=== PATIENT | female | born 1965 | race Caucasian/White ===

== ENCOUNTER 2024-04-19 11:39 | Emergency (ER) | payer OTHER, SELFPAY ==
[2024-04-19 11:55] VITALS: BP 129/77; PULSE 71; RESP 20; TEMP 37; O2SAT 98; BMI 21.9
--- NOTE | 2024-04-19 12:24 | CRLHL7_ITS ---
For Patients: As a result of the Century Cures Act, medical imaging exams and procedure reports are released immediately into your electronic medical record. You may view this report before your referring provider. If you have questions, please contact your health care provider. INDICATION: UPPER EPIG PAIN RADIATES TO CHEST AND DOWN THE MIDDLE OF HER ABD TECHNIQUE: CT abdomen and pelvis acquired with 69 cc Isovue 370 IV contrast. COMPARISON: None. FINDINGS: Lower chest: Dependent right lower lobe predominant scattered pulmonary peripheral micro nodules. Additional scattered indeterminate pulmonary nodules in the lung bases measuring up to 7 millimeters. ABDOMEN: Liver: Normal enhancement. Hypodensity in segment 5 measuring 11 millimeters measuring not quite simple attenuation. Incompletely characterized on this exam. Gallbladder and biliary: Normal gallbladder without radiopaque stone. Normal caliber bile ducts. Spleen: Normal size and enhancement. Pancreas: Normal enhancement without peripancreatic inflammatory changes or ductal dilatation. Adrenal glands: Normal adrenal glands. Kidneys and ureters: Normal enhancement. No radio-opaque calculi. No hydroureteronephrosis. GI tract: The stomach is relatively decompressed. Normal caliber small and large bowel loops. Appendix is not definitively visualized. Colonic diverticula without diverticulitis Vascular structures: Normal caliber aorta with atherosclerotic calcifications. Lymph nodes: No lymphadenopathy in the abdomen or pelvis by size criteria. Peritoneum: No free air, free fluid, or focal drainable fluid collection. PELVIS: Genitourinary system: Urinary bladder is relatively decompressed. Hysterectomy. SKELETAL STRUCTURES AND SOFT TISSUES: Bilateral breast implants. IMPRESSION: 1. No discrete acute abdominal or pelvic process. No obstruction. No hydroureteronephrosis. 2. No imaging findings to explain the reported clinical symptoms. 3. Dependent right lower lobe predominant scattered pulmonary peripheral micro nodules. Additional scattered indeterminate pulmonary nodules in the lung bases measuring up to 7 millimeters. If not previously assessed, recommend unenhanced chest CT for further evaluation. 4. Hypodensity in segment 5 measuring 11 millimeters measuring not quite simple attenuation. Incompletely characterized on this exam. Recommend nonemergent dedicated liver protocol MRI for further characterization if not previously worked up. Please note that all CT scans at this facility use dose modulation, iterative reconstruction, and/or weight-based dosing when appropriate to reduce radiation dose to as low as reasonably achievable. Dictated by Tommy Dhillon MD @ 04/19/2024 1:53:09 PM (Electronically Signed)
--- OUTSIDE RECORDS SUMMARY | 2024-04-19 12:37 | XMS_ITS | Encounter Summary ---
Author Organization [place] Address [address] [place] [address]. [place] [address] Care Team Providers Care Bus Assistant Name Role Phone Poonam Manzo NP Primary Care Provider + Poonam Manzo INPATIENT SERVICES RN Unavailable [phone] Susana Mensah MD Unavailable Jessica Coronado PA-C Unavailable [phone] Poonam Manzo INPATIENT SERVICES RN Unavailable [phone] Encounter Details Date Type Department Care Team (Late st Contact Info) Description 04/09/2023 External Order Results [facility] [address] [place] [address] Outside, Provider Family history of breast cancer; Family history of prostate cancer; History of adenomatous polyp of colon Social History Tobacco Use Types Packs/Day Years Used Date Smoking Tobacco: Never Smokeless Tobacco: Never Comments:no ecig Alcohol Use Standard Drinks/Week Comments Yes 0 (1 standard drink = 0.6 oz pur e alcohol) 1 per month AUDIT-C Answer Date Recorded Q1: How often do you have a drink containing alc ohol? Monthly or less 10/23/2018 Average Number of Drinks Not on file 019 Frequency of Binge Drinking Not on file 09/26 PHQ-2 Answer Date Recorded PHQ-2 Score 0 04/30/2022 Adolescent Education Answer Date Record ed Getting School Help Needed Not on file 12/09 Comments No Sex and Gender Information Value Date Recorded Sex Assigned at Female 01/12/2022 10:10 AM STOPPER MAKER HELPER Legal Sex Female 4:04 AM STOPPER MAKER HELPER Gender Identity Female 01/12/2022 10:10 AM STOPPER MAKER HELPER Sexual Orientation Not on file documented as of this encounter Plan of Treatment Not on file documented as of this encounter Procedures Procedure Name Priority Date/Time Associated Diagnosis Comments LABORATORY MISCELLANEOUS ORDER Routine 04/09/2023 12:00 AM STOPPER MAKER HELPER Family history of breast cancer Family history of prostate cancer History of adenomatous polyp of colon documented in this encounter Results * Other Laboratory; [facility] Genetics; Custom Panel, genetic testing (Laboratory Miscellaneous Order) (04/09/2023 12:00 AM STOPPER MAKER HELPER) Saliva 04/09/2023 Lisette Stock [facility] - BLOOD ORDERABLES Final Re sult BREEZE PFT documented in this encounter Visit Diagnoses Diagnosis Family history of breast cancer Family history of malignant neoplasm of breast Family history of prostate cancer Family history of malignant neoplasm of prostate History of adenomatous polyp of colon Personal history of colonic polyps documented in this encounter Additional Health Concerns Assessment Noted Time PHQ-9 Depression Total Score: 0 04/21/19 19 7:38 AM STOPPER MAKER HELPER documented as of this encounter Care Teams Bus Assistant Relationship Specialty Start Date End Date Poonam Manzo NP [address] [place] [place] [address] PCP - General Nurse Practitioner 04/14/18 Poonam Manzo NP [address] [facility] [place], [place] [address] Assigned PCP 10/09/17 08/16/23 Susana Mensah MD [address] [place] [address] Assigned Surgical Provider 05/04/22 12/16/23 Jessica Coronado PA-C [address] [place] [address] Assigned PCP 08/17/23 03/17/24 Poonam Manzo NP [address] [place] [address] Assigned PCP 03/18/24 documented as of this encounter
--- OUTSIDE RECORDS SUMMARY | 2024-04-19 12:37 | XMS_ITS | Encounter Summary ---
Author Organization [place] Address [address] [place] [address]. [place] [address] Care Team Providers Care Structural Engineering Drafting Officer Name Role Phone Poonam Manzo NP Primary Care Provider + Poonam Manzo UNDERWATER HUNTER Unavailable [phone] Susana Mensah MD Unavailable Jessica Coronado-Nolan Unavailable [phone] Poonam Manzo UNDERWATER HUNTER Unavailable [phone] Encounter Details Date Type Department Care Team (Late st Contact Info) Description 03/24/2023 MyC Medical Advice [facility] [address] [place] [address] Lisette Stock, [address] [address] Social History Tobacco Use Types Packs/Day Years [...] Sex Assigned at Female 01/12/2022 10:10 AM NURSING DIRECTOR Legal Sex Female 4:04 AM NURSING DIRECTOR Gender Identity Female 01/12/2022 10:10 AM NURSING DIRECTOR Sexual Orientation Not on file documented as of this encounter Plan of Treatment Not on file documented as of this encounter Visit Diagnoses Not on filedocumented in this encounter Additional Health Concerns Assessment Noted Time PHQ-9 Depression Total Score: 0 04/21/19 7:38 AM NURSING DIRECTOR documented as of this encounter Care Teams Structural Engineering Drafting Officer Relationship Specialty Start Date End Date Poonam Manzo, UNDERWATER HUNTER [address] [place] [address] PCP - General Nurse Practitioner 04/14/18 Poonam Manzo, UNDERWATER HUNTER [address] [place] [address] Assigned PCP 10/09/17 08/16/23 Susana Mensah MD [address] [place] [address] Assigned Surgical Provider 05/04/22 12/16/23 Jessica Coronado PA-C [address] [facility] [place] [address] Assigned PCP 08/17/23 03/17/24 Poonam Manzo, UNDERWATER HUNTER [address] [place] [id number] Assigned PCP 03/18/24 documented as of this encounter
--- OUTSIDE RECORDS SUMMARY | 2024-04-19 12:37 | XMS_ITS | Encounter Summary ---
Author Organization [place] Address [address] [place] [address]. [place] [address] Care Team Providers Care Account Engineer Name Role Phone Poonam Manzo NP Primary Care Provider + Poonam Manzo FINISHED CIGAR MAKER Unavailable [phone] Susana Mensah MD Unavailable Jessica Coronado-Nolan Unavailable [phone] Poonam Manzo FINISHED CIGAR MAKER Unavailable [phone] Encounter Details Date Type Department Care Team (Late st Contact Info) Description 05/17/2023 MyC Medical Advice [facility] [address] [place] [address] Lisette Stock, [address] [address] Social History Tobacco Use Types [...] Sex Assigned at Female 01/12/2022 10:10 AM ADVERTISING VICE PRESIDENT Legal Sex Female 4:04 AM ADVERTISING VICE PRESIDENT Gender Identity Female 01/12/2022 10:10 AM ADVERTISING VICE PRESIDENT Sexual Orientation Not on file documented as of this encounter Plan of Treatment Not on file documented as of this encounter Visit Diagnoses Not on filedocumented in this encounter Additional Health Concerns Assessment Noted Time PHQ-9 Depression Total Score: 0 04/21/19 7:38 AM ADVERTISING VICE PRESIDENT documented as of this encounter Care Teams Account Engineer Relationship Specialty Start Date End Date Poonam Manzo, FINISHED CIGAR MAKER [address] [place] [address] PCP - General Nurse Practitioner 04/14/18 Poonam Manzo, FINISHED CIGAR MAKER [address] [place] [address] Assigned PCP 10/09/17 08/16/23 Susana Mensah MD [address] [place] [address] Assigned Surgical Provider 05/04/22 12/16/23 Jessica Coronado PA-C [address] [facility] [place] [address] Assigned PCP 08/17/23 03/17/24 Poonam Manzo, FINISHED CIGAR MAKER [address] [place] [address] Assigned PCP 03/18/24 documented as of this encounter
--- OUTSIDE RECORDS SUMMARY | 2024-04-19 12:37 | XMS_ITS | Encounter Summary ---
Author Organization [place] Address [address] [place] [address] Care Team Providers Care Software Database Architect Name Role Phone Kasey Christianson MD Primary Care Provider No Ref-Primary, Physician Primary Care Provider Poonam Manzo CLINICAL PHYSICIAN ASSISTANT Unavailable [phone] Poonam Manzo CLINICAL PHYSICIAN ASSISTANT Primary Care Provider + Poonam Manzo CLINICAL PHYSICIAN ASSISTANT Unavailable [phone] Abhilash Enrique DO Unavailable Ayush Boyd DPM Unavailable [phone] Susana Mensah MD Unavailable Jessica Coronado PA-C Unavailable [phone] Poonam Manzo CLINICAL PHYSICIAN ASSISTANT Unavailable [phone] Encounter Details Date Type Department Care Team (Late st Contact Info) Description 11/12/1999 Abstract [facility], Health Info Mgmt [facility] [address] [place] [address] Scan, Non-Provider SURGICAL PATHOLOGY UTERUS/CERVIX/ENDOCERVI CITIS BIOPSIES Social History Tobacco Use Types Packs/Day Years Used Date Smoking Tobacco: Never Assessed AUDIT-C Answer Date Recorded Q1: How often do you have a drink containing alc ohol? Monthly or less 10/23/2018 Average Number of Drinks Not on file 019 Frequency of Binge Drinking Not on file 09/26 PHQ-2 Answer Date Recorded PHQ-2 Score 0 04/14/2024 Adolescent Education Answer Date Record ed Getting School Help Needed Not on file 12/09 Food Insecurity Answer Date Recorded Within the past 12 months, d id you worry that your food would run out before you got money to buy more? No 06/09/2023 Within the past 12 months, d id the food you bought just not last and you didn t have money to get more? No 06/09/2023 Housing Stability Answer Date Recorded Do you have housing? (Housin g is defined as stable permanent housing and does not include staying ouside in a car, in a tent, in an abandoned building, in an overnight senior living, or couch-surfing.) Yes 06/09/2023 Are you worried about losing your housing? No 06/09/2023 Financial Resource Strain Answer Date R ecorded Within the past 12 months, h ave you or your family members you live with been unable to get utilities (heat, electricity) when it was really needed? No 06/09/2023 Transportation Needs Answer Date Record ed Within the past 12 months, h as lack of transportation kept you from medical appointments, getting your medicines, non-medical meetings or appointments, work, or from getting things that you need? No 06/09/2023 Interpersonal Safety Answer Date Record ed Do you feel physically and e motionally safe where you currently live? Yes 02/23/2024 Within the past 12 months, h ave you been hit, slapped, kicked or otherwise physically hurt by someone? No 02/23/2024 Within the past 12 months, h ave you been humiliated or emotionally abused in other ways by your partner or ex-partner? No 02/23/2024 Comments Unknown Sex and Gender Information Value Date Recorded Sex Assigned at Female 01/12/2022 10:10 AM REWRITER Legal Sex Female 4:04 AM REWRITER Gender Identity Female 01/12/2022 10:10 AM REWRITER Sexual Orientation Not on file COVID-19 Exposure Response Date Recorded In the last 10 days, have yo u been in contact with someone who was confirmed or suspected to have Coronavirus/COVID-19? No / Unsure 05/21/2022 1:50 PM CDT documented as of this encounter Plan of Treatment Not on file documented as of this encounter Visit Diagnoses Not on filedocumented in this encounter Care Teams Software Database Architect Relationship Specialty Start Date End Date Kasey Christianson MD PCP - General Family Practice 04/23/17 10/05/17 No Ref-Primary, Physician PCP - General 10/06/17 04/13/18 Poonam Manzo, CLINICAL PHYSICIAN ASSISTANT [address] [place] [id number] PCP - Assigned PCP 10/09/17 04/28/18 Poonam Manzo, GUSTAVO [address] [place], [place] [id number] PCP - General Nurse Practitioner 04/14/18 Poonam Manzo, CLINICAL PHYSICIAN ASSISTANT [address] [place] [id number] Assigned PCP 10/09/17 08/16/23 Abhilash Enriuqe DO [address] [place] [address] Assigned Heart and Vascular Provider 12/17/19 05/27/20 Ayush Boyd DPM [facility] [address] [place] [id number] Assigned Musculoskeletal Provider 12/17/19 09/05/20 Susana Mensah MD [address] [place] [address] Assigned Surgical Provider 05/04/22 Jessica Coronado PA-C [address] [place] [address] Assigned PCP 08/17/23 03/17/24 Poonam Manzo NP [address] [place] [address] Assigned PCP 03/18/24 documented as of this encounter
--- OUTSIDE RECORDS SUMMARY | 2024-04-19 12:38 | XMS_ITS | Encounter Summary ---
Author Organization [place] Address [address] [place] [address] Care Team Providers Care Client Integration Manager Name Role Phone No Ref-Primary, Physician Primary Care Provider Poonam Manzo GLASS INSERTER Unavailable [phone] Poonam Manzo GLASS INSERTER Primary Care Provider + Poonam Manzo GLASS INSERTER Unavailable [phone] Abhilash Enrique DO Unavailable [phone] Ayush Boyd DPM Unavailable [phone] Susana Mensah MD Unavailable Jessica Coronado PA-C Unavailable [phone] Poonam Mazno GLASS INSERTER Unavailable [phone] Encounter Details Date Type Department Care Team (Late st Contact Info) Description 10/20/2017 Orders Only [facility] [address] [place] [address] Sonia Wu Sarcoidosis; Multiple joint pain; Health care maintenance Social History Tobacco Use Types Packs/Day Years Used Date Smoking Tobacco: Never Smokeless Tobacco: Never Alcohol Use Standard Drinks/Week Comments Yes 0 (1 standard drink = 0.6 oz pure alcohol) Alcoholic Drinks/day: less than weekly Comments No Sex and Gender Information Value Date Recorded Sex Assigned at Female 01/12/2022 10:10 AM MOBILE PAINT SPECIALIST Legal Sex Female 4:04 AM MOBILE PAINT SPECIALIST Gender Identity Female 01/12/2022 10:10 AM MOBILE PAINT SPECIALIST Sexual Orientation Not on file documented as of this encounter Plan of Treatment Not on file documented as of this encounter Procedures Procedure Name Priority Date/Time Associated Diagnosis Comments LIPID PROFILE Routine 10/20/2017 9:18 AM CDT Health care maintenance ERYTHROCYTE SEDIMENTATION RATE AUTO Routine 10/20/2017 9:18 AM CDT Sarcoidosis Multiple joint pain CRP INFLAMMATION Routine 10/20/2017 9:18 AM CDT Sarcoidosis Multiple joint pain COMPREHENSIVE METABOLIC PANEL Routine 10/20/2017 9:18 AM CDT Sarcoidosis CBC WITH PLATELETS Routine 10/20/2017 9: 18 AM CDT Sarcoidosis documented in this encounter Results * CBC with platelets (10/20/2017 9:18 AM CDT) WBC 5.0 4.0 - 11.0 10e9/L 10/20/2017 9:40 AM CDT [facility] RBC Count 4.62 3.8 - 5.2 10e12/L 10/20/2017 9:40 AM CDT [facility] Hemoglobin 14.2 11.7 - 15.7 g/dL 10/20/2017 9:40 AM CDT [facility] Hematocrit 40.7 35.0 - 47.0 % 10/20/2017 9:40 AM CDT [facility] MCV 88 78 - 100 fl 10/20/2017 9:40 AM CDT [facility] MCH 30.7 26.5 - 33.0 pg 10/20/2017 9:40 AM CDT [facility] MCHC 34.9 31.5 - 36.5 g/dL 10/20/2017 9:40 AM T [facility] RDW 12.1 10.0 - 15.0 % 10/20/2017 9:40 AM T [facility] Platelet Count 203 150 - 450 10e9/L 10/20/2017 9:40 AM T [facility] Blood specimen (specimen) 10/20/2017 9:18 AM CDT 10/20/2017 9:19 AM CDT us Poonam Manzo GLASS INSERTER LAB - BLOOD ORDERABLES F inal Result Performing Organization Address City/[facility] [address]/ZIP Co de Phone Number [address] [phone] * (ABNORMAL) Lipid Profile (10/20/2017 9:18 AM CDT) [facility] Signature Cholesterol 193 <200 mg/dL 10/20/2017 9:51 AM [facility] Triglycerides 90 <150 mg/dL 10/20/2017 9:51 AM [facility] HDL Cholesterol 62 23 - 92 mg/dL 10/20/2017 9:51 AM [facility] LDL Cholesterol Calculated 113(H) <100 mg/dL 10/20/2017 9:51 AM [facility] Comment: Above desirable: 100-129 mg/dl Borderline High: 130-159 mg/dL High: 160-189 mg/dL Very high: >189 mg/dl Non HDL Cholesterol 131(H) <130 mg/dL 10/20/2017 9:51 AM [facility] Comment: Above Desirable: 130-159 mg/dl Borderline high: 160-189 mg/dl High: 190-219 mg/dl Very high: >219 mg/dl Blood specimen (specimen) 10/20/2017 9:18 AM CDT 10/20/2017 9:19 AM CDT us Poonam Manzo GLASS INSERTER LAB - BLOOD ORDERABLES F inal Result [address] [phone] * Comprehensive metabolic panel (10/20/2017 9:18 AM CDT) Sodium 140 134 - 144 mmol/L 10/20/2017 9:51 AM CDT [facility] Potassium 4.6 3.5 - 5.1 mmol/L 10/20/2017 9:51 AM CDT [facility] Chloride 106 98 - 107 mmol/L 10/20/2017 9:51 AM CDT [facility] Carbon Dioxide 29 21 - 31 mmol/L 10/20/2017 9:51 AM CDT [facility] Anion Gap 5 3 - 14 mmol/L 10/20/2017 9:51 AM CDT [facility] Glucose 97 70 - 105 mg/dL 10/20/2017 9:51 AM T [facility] Urea Nitrogen 13 7 - 25 mg/dL 10/20/2017 9:51 AM T [facility] Creatinine 0.88 0.60 - 1.20 mg/dL 10/20/2017 9:51 AM CDT [facility] GFR Estimate 68 >60 mL/min/1.7 m2 10/20/2017 9:51 AM T [facility] GFR Estimate If Black 82 >60 mL/min/1.7 m2 10/20/2017 9:51 AM T [facility] Calcium 9.6 8.6 - 10.3 mg/dL 10/20/2017 9:51 AM T [facility] Bilirubin Total 0.7 0.3 - 1.0 mg/dL 10/20/2017 9:51 AM T [facility] Albumin 4.3 3.5 - 5.7 g/dL 10/20/2017 9:51 AM CDT [facility] Protein Total 7.0 6.4 - 8.9 g/dL 10/20/2017 9:51 AM CDT [facility] Alkaline Phosphatase 93 34 - 104 U/L 10/20/2017 9:51 AM CDT [facility] ALT 18 7 - 52 U/L 10/20/2017 9:51 AM CDT [facility] AST 26 13 - 39 U/L 10/20/2017 9:51 AM CDT [facility] Blood specimen (specimen) 10/20/2017 9:18 AM CDT 10/20/2017 9:19 AM CDT us Poonam Manzo GLASS INSERTER LAB - BLOOD ORDERABLES F inal Result Performing Organization Address City/[facility] [address]/ZIP Co de Phone Number [address] [phone] * CRP inflammation (10/20/2017 9:18 AM CDT) CRP Inflammation 0.2 <0.5 mg/L 10/21/19 18 9:51 AM CDT [facility] Blood specimen (specimen) 10/20/2017 9:18 AM CDT 10/20/2017 9:19 AM CDT us Poonam Manzo GLASS INSERTER LAB - BLOOD ORDERABLES F inal Result Performing Organization Address [facility] [address]/[facility] [[email or web address]] Co de Phone Number [address] [phone] * Sedimentation Rate (ESR) (10/20/2017 9:18 AM CDT) Sed Rate 9 1 - 15 mm/h 10/20/2017 10:13 AM CDT [facility] Blood specimen (specimen) 10/20/2017 9:18 AM CDT 10/20/2017 9:19 AM CDT us Poonam Poonam Manzo GLASS INSERTER LAB - BLOOD ORDERABLES F inal Result Performing Organization Address [facility] [[email or web address]] Co de Phone Number [address] [phone] documented in this encounter Visit Diagnoses Diagnosis Sarcoidosis Multiple joint pain Pain in joint, multiple sites Health care maintenance Unspecified general medical examination documented in this encounter Additional Health Concerns Assessment Noted Time PHQ-9 Depression Total Score: 0 10/22/19 18 7:19 AM CDT documented as of this encounter Care Teams Client Integration Manager Relationship Specialty Start Date End Date No Ref-Primary, Physician PCP - General 10/06/17 04/13/18 Poonam Manzo, GLASS INSERTER [address] [place] [id number] PCP - Assigned PCP 10/09/17 04/28/18 Poonam Manzo, GLASS INSERTER [address] [place], [place] [address] PCP - General Nurse Practitioner 04/14/18 Poonam Manzo, GLASS INSERTER [address] [place], [place] [address] Assigned PCP 10/09/17 08/16/23 Abhilash Enrique DO [address] [place], [place] [address] Assigned Heart and Vascular Provider 12/17/19 05/27/20 Ayush Boyd DPM [facility] [address] [place] [address] Assigned Musculoskeletal Provider 12/17/19 09/05/20 Susana Mensah MD [address] [place] [address] Assigned Surgical Provider 05/04/22 Jessica Coronado PA-C [address] [facility] [place], [place] [address] Assigned PCP 08/17/23 03/17/24 Poonam Manzo NP [address] [place] [address] Assigned PCP 03/18/24 documented as of this encounter
--- OUTSIDE RECORDS SUMMARY | 2024-04-19 12:38 | XMS_ITS | Encounter Summary ---
Author Organization [facility] Address [address] [place] [address] Care Team Providers Care Drug Regulatory Affairs Specialist Name Role Phone Poonam Manzo WATCHER LOOKOUT TOWER Primary Care Provider + Poonam Manzo WATCHER LOOKOUT TOWER Unavailable [phone] Abhilash Enrique DO Unavailable [phone] Ayush Boyd DPTasia Unavailable [phone] Susana Mensah MD Unavailable Jessica Coronado PAGiovanaC Unavailable [phone] Poonam Manzo WATCHER LOOKOUT TOWER Unavailable [phone] Encounter Details Date Type Department Care Team (Late st Contact Info) Description 02/04/2019 MyC Medical Advice [facility] [address] [place] [address] Abhilash Enrique, DO [address] [place] [address] Social History Tobacco Use Types Packs/Day Years Used Date Smoking Tobacco: Never Smokeless Tobacco: Never Comments:no ecig Alcohol Use Standard Drinks/Week Comments Yes 0 (1 standard drink = 0.6 oz pur e alcohol) AUDIT-C Answer Date Recorded Q1: How often do you have a drink containing alc ohol? Monthly or less 10/23/2018 Average Number of Drinks Not on file 019 Frequency of Binge Drinking Not on file 09/26 PHQ-2 Answer Date Recorded PHQ-2 Score 0 09/03/2018 Comments No Sex and Gender Information Value Date Recorded Sex Assigned at Female 01/12/2022 10:10 AM WATER TAXI FERRY OPERATOR Legal Sex Female 4:04 AM WATER TAXI FERRY OPERATOR Gender Identity Female 01/12/2022 10:10 AM WATER TAXI FERRY OPERATOR Sexual Orientation Not on file documented as of this encounter Plan of Treatment Not on file documented as of this encounter Visit Diagnoses Not on filedocumented in this encounter Additional Health Concerns Assessment Noted Time PHQ-9 Depression Total Score: 0 04/21/19 19 7:38 AM WATER TAXI FERRY OPERATOR documented as of this encounter Care Teams Drug Regulatory Affairs Specialist Relationship Specialty Start Date End Date Poonam Manzo NP [address] [place], [place] [address] PCP - General Nurse Practitioner 04/14/18 Poonam Manzo NP [address] [place], [place] [address] Assigned PCP 10/09/17 08/16/23 Abhilash Enriqeu DO [address] [place], [place] [address] Assigned Heart and Vascular Provider 12/17/19 05/27/20 Ayush Boyd DPM [facility] [address] [place], [place] [address] Assigned Musculoskeletal Provider 12/17/19 09/05/20 Susana Mensah MD [address] [place], [place] [address] Assigned Surgical Provider 05/04/22 Jessica Coronado PA-C [address] [place] [address] Assigned PCP 08/17/23 03/17/24 Poonam Manzo NP [address] [place] [address] Assigned PCP 03/18/24 documented as of this encounter
--- OUTSIDE RECORDS SUMMARY | 2024-04-19 12:38 | XMS_ITS | Encounter Summary ---
Author Organization [facility] Address [address] [place] [address] Care Team Providers Care Manager Utilization Review Name Role Phone Unavailable Primary Care Provider Unavailabl e Encounter Details Date Type Department Care Team (Late st Contact Info) Description 03/22/2024 Clinical Communication [facility] [place], [place] [address] [place] [address] William Fitzgerald M.D. [address] [place] [address] Social History Tobacco Use Types Packs/Day Years Used Date Smoking Tobacco: Never Passive Smoke Exposure: Past Smokeless Tobacco: Never Comments:Parents smoked grow ing Alcohol Use Standard Drinks/Week Comments Not Currently 2 (1 standard drink = 0.6 oz pur e alcohol) [facility] Utilities Answer Date Recorded In the past 12 months has [employer], gas, oil, or water [employer] threatened to shut off services in your home? No 07/11/2023 PHQ-2 Answer Date Recorded PHQ-2 Score 0 08/31/2023 Exercise Vital Sign Answer Date Recorde d On average, how many days pe r week do you engage in moderate to strenuous exercise (like a brisk walk)? 2 days 07/11/2023 On average, how many minutes do you engage in exercise at this level? 40 min 07/11/2023 Hunger Vital Sign Answer Date Recorded Within the past 12 months, y ou worried that your food would run out before you got the money to buy more. Never true 07/11/19 24 Within the past 12 months, t he food you bought just didn't last and you didn't have money to get more. Never true 07/11/2023 PRAPARE - Transportation Answer Date Re corded In the past 12 months, has l ack of transportation kept you from medical appointments or from getting medications? No 06/24 In the past 12 months, has l ack of transportation kept you from meetings, work, or from getting things needed for daily living? No 07/11/2023 Depression Answer Date Recor ded PHQ-9 Total Score (max 27) 2 08/30 Nutrition Answer Date Recorded On average, how many serving s of fruits and vegetables do you eat per day (serving size is equal to 1 cup or approximately the size of a tennis ball)? 3-5 07/11/2023 Dental Answer Date Recorded Dental: Regular Dentist No 07/11/19 Employment Answer Date Recorded Employment status Employed and actively working without restrictions 07/11/2023 Housing Stability Answer Date Recorded What is your living situation today? I have a [facility] place to live 07/11/2023 Comments No Sex and Gender Information Value Date Recorded Sex Assigned at Female 07/11/2023 1:27 PM CDT Legal Sex Female 8:54 AM GENERAL HARDWARE SALESPERSON Gender Identity Female 07/11/2023 1:27 PM CDT Sexual Orientation Straight 07/11/2023 1: 27 PM CDT documented as of this encounter Plan of Treatment Not on file documented as of this encounter Goals Goal Patient Goal Type Associated Problems Recent Progress Patient-Stated? Author [facility] Care Plan [facility] Insomnia No William Fitzgerald M.D. [facility] Nicotine Dependency Chronic Care Plan [facility] No William Fitzgerald M.D. [facility] Worry Care Plan [facility] Worry Priority No Patient, Online Services [facility] Care Plan [facility] EDUCATION No Patient, Online Services [facility] Care Plan [facility] EDUCATION No Patient, Online Services [facility] Self Talk Care Plan [facility] Self Talk Priority No Patient, Online Services [facility] SLEEP DIARY 4 DAYS Care Plan [facility] SLEEP DIARY 4 DAYS No Patient, Online Services documented as of this encounter Visit Diagnoses Not on filedocumented in this encounter Additional Health Concerns Active Problems Noted Date Diagnosed Date [facility] 09/01/2023 [facility] Worry Priority 024 [facility] EDUCATIO N 09/02/2023 [facility] EDUCATIO N 09/02/2023 [facility] Self Talk Priority 11/2023 [facility] INS[facility] SLEEP DIARY 4 DAYS 11/11/2023 Assessment Noted Time PHQ-9 Depression Total Score: 2 08/31/19 24 2:10 PM CDT documented as of this encounter
--- OUTSIDE RECORDS SUMMARY | 2024-04-19 12:38 | XMS_ITS | Encounter Summary ---
Author Organization [place] Address [address] [place] [address]. [place] [address] Care Team Providers Care Die Attacher Name Role Phone Poonam Manzo CADASTRAL SURVEYOR Primary Care Provider + Poonam Manzo CADASTRAL SURVEYOR Unavailable [phone] Encounter Details Date Type Department Care Team (Latest Contact Info) Description 04/14/2024 Travel Social History Tobacco Use Types Packs/Day Years [...] in an abandoned building, in an overnight halfway, or couch-surfing.) Yes 06/09/2023 Are you worried [...] your partner or ex-partner? No 02/23/2024 Comments No Sex and Gender Information Value Date Recorded Sex Assigned at Female 01/12/2022 10:10 AM FOOD RUNNER Legal Sex Female 4:04 AM FOOD RUNNER Gender Identity Female 01/12/2022 10:10 AM FOOD RUNNER Sexual Orientation Not on file documented as of this encounter Plan of Treatment Not on file documented as of this encounter Visit Diagnoses Not on filedocumented in this encounter Additional Health Concerns Assessment Noted Time PHQ-9 Depression Total Score: 1 02/23/20 24 10:16 AM FOOD RUNNER documented as of this encounter Care Teams Die Attacher Relationship Specialty Start Date End Date Poonam Manzo NP [address] [place] [address] PCP - General Nurse Practitioner 04/14/18 Poonam Manzo NP [address] [place] [address] Assigned PCP 03/18/24 documented as of this encounter
--- OUTSIDE RECORDS SUMMARY | 2024-04-19 12:38 | XMS_ITS | Encounter Summary ---
Author Organization [facility] Address [address] [place] [address] Care Team Providers Care Delphi Developer Name Role Phone Poonam Manzo CAP LINING MACHINE OPERATOR Primary Care Provider + Jessica Coronado PAGiovanaC Unavailable [phone] Poonam Manzo CAP LINING MACHINE OPERATOR Unavailable [phone] Encounter Details Date Type Department Care Team (Late st Contact Info) Description 02/23/2024 MyC Medical Advice [facility] [address] [place] [address] Poonam Manzo, CAP LINING MACHINE OPERATOR [address] [place] [address] Social History Tobacco Use Types Packs/Day Years [...] PHQ-2 Answer Date Recorded PHQ-2 Score 0 02/23/2024 Adolescent Education Answer Date Record ed Getting [...] Answer Date Recorded Do you have housing? (Campbell escobar is defined as stable permanent housing and does not include staying ouside in a car, in a tent, in an abandoned building, in an overnight skilled nursing, or couch-surfing.) Yes 06/09/2023 Are you worried [...] Sex Assigned at Female 01/12/2022 10:10 AM HOUSING DIRECTOR Legal Sex Female 4:04 AM HOUSING DIRECTOR Gender Identity Female 01/12/2022 10:10 AM HOUSING DIRECTOR Sexual Orientation Not on file documented as of this encounter Plan of Treatment Not on file documented as of this encounter Visit Diagnoses Not on filedocumented in this encounter Additional Health Concerns Assessment Noted Time PHQ-9 Depression Total Score: 1 02/23/20 24 10:16 AM HOUSING DIRECTOR documented as of this encounter Care Teams Delphi Developer Relationship Specialty Start Date End Date Poonam Manzo NP [address] [place] [address] PCP - General Nurse Practitioner 04/14/18 Jessica Coronado PA-C [address] [place], [place] [address] Assigned PCP 08/17/23 03/17/24 Poonam Manzo NP [address] [place], [place] [address] Assigned PCP 03/18/24 documented as of this encounter
--- OUTSIDE RECORDS SUMMARY | 2024-04-19 12:38 | XMS_ITS | Encounter Summary ---
Author Organization [facility] Address [address] [place] [address]. [address] Care Team Providers Care Grinder Needle Tip Name Role Phone Poonam Manzo NP Primary Care Provider + Poonam Manzo ARMHOLE BASTER HAND Unavailable [phone] Susana Mensah MD Unavailable Jessica Coronado-Nolan Unavailable [phone] Poonam Manzo ARMHOLE BASTER HAND Unavailable [phone] Encounter Details Date Type Department Care Team (Late st Contact Info) Description 01/01/2023 MyC Medical Advice [facility] [address] [place] [address] Lisette Stock, [address] [address] Social History Tobacco Use Types [...] Sex Assigned at Female 01/12/2022 10:10 AM REGIONAL EHS MANAGER Legal Sex Female 4:04 AM REGIONAL EHS MANAGER Gender Identity Female 01/12/2022 10:10 AM REGIONAL EHS MANAGER Sexual Orientation Not on file documented as of this encounter Plan of Treatment Not on file documented as of this encounter Visit Diagnoses Not on filedocumented in this encounter Additional Health Concerns Assessment Noted Time PHQ-9 Depression Total Score: 0 04/21/19 7:38 AM REGIONAL EHS MANAGER documented as of this encounter Care Teams Grinder Needle Tip Relationship Specialty Start Date End Date Poonam Manzo, ARMHOLE BASTER HAND [address] [place] [address] PCP - General Nurse Practitioner 04/14/18 Poonam Manzo, ARMHOLE BASTER HAND [address] [place] [address] Assigned PCP 10/09/17 08/16/23 Susana Mensah MD [address] [place] [id number] Assigned Surgical Provider 05/04/22 12/16/23 Jessica Coronado PA-C [address] [facility] [place] [address] Assigned PCP 08/17/23 03/17/24 Poonam Manzo, ARMHOLE BASTER HAND [address] [place] [id number] Assigned PCP 03/18/24 documented as of this encounter
--- OUTSIDE RECORDS SUMMARY | 2024-04-19 12:38 | XMS_ITS | Encounter Summary ---
Author Organization [facility] Address [address] [place] [address]. [place] [address] Care Team Providers Care Pelt Shearer Name Role Phone Poonam Manzo NP Primary Care Provider + Poonam Manzo REFUELING RAMP SUPERVISOR Unavailable [phone] Ayush Boyd DPM Unavailable [phone] Susana Mensah MD Unavailable Jessica Coronado PA-C Unavailable [phone] Poonam Manzo REFUELING RAMP SUPERVISOR Unavailable [phone] Encounter Details Date Type Department Care Team (Late st Contact Info) Description 08/25/2020 Documentation Only INTERFACED REPORT Unknown, Provider Social History Tobacco Use Types Packs/Day Years Used Date Smoking Tobacco: Never Smokeless Tobacco: Never Comments:no ecig Alcohol Use Standard Drinks/Week Comments Yes 0 (1 standard drink = 0.6 oz pur e alcohol) rare AUDIT-C Answer Date Recorded Q1: How often do you have a drink containing alc ohol? Monthly or less 10/23/2018 Average Number of Drinks Not on file 019 Frequency of Binge Drinking Not on file 09/26 PHQ-2 Answer Date Recorded PHQ-2 Score 0 01/25/2020 Comments No Sex and Gender Information Value Date Recorded Sex Assigned at Female 01/12/2022 10:10 AM DANCE CHOREOGRAPHER Legal Sex Female 4:04 AM DANCE CHOREOGRAPHER Gender Identity Female 01/12/2022 10:10 AM DANCE CHOREOGRAPHER Sexual Orientation Not on file COVID-19 Exposure Response Date Recorded In the last month, have you been in contact with someone who was confirmed or suspected to have Coronavirus / COVID-19? No / Unsure 08/24/2020 3:57 PM CDT documented as of this encounter Plan of Treatment Not on file documented as of this encounter Visit Diagnoses Not on filedocumented in this encounter Additional Health Concerns Assessment Noted Time PHQ-9 Depression Total Score: 0 04/21/19 7:38 AM DANCE CHOREOGRAPHER documented as of this encounter Care Teams Pelt Shearer Relationship Specialty Start Date End Date Poonam Manzo, REFUELING RAMP SUPERVISOR [address] [place] [address] PCP - General Nurse Practitioner 04/14/18 Poonam Manzo, REFUELING RAMP SUPERVISOR [address] [place], [place] [address] Assigned PCP 10/09/17 08/16/23 Ayush Boyd DPM [facility] [address] [place] [id number] Assigned Musculoskeletal Provider 12/17/19 09/05/20 Susana Mensah MD [address] [place], [place] [address] Assigned Surgical Provider 05/04/22 Jessica Coronado PA-C [address] [facility] [place], [place] [address] Assigned PCP 08/17/23 03/17/24 Poonam Manzo, GUSTAVO [address] [place] [address] Assigned PCP 03/18/24 documented as of this encounter
--- OUTSIDE RECORDS SUMMARY | 2024-04-19 12:38 | XMS_ITS | Encounter Summary ---
Author Organization [facility] Address [address] [place] [address]. [place] [address] Care Team Providers Care Traffic Workforce Representative Name Role Phone Poonam Manzo INSPECTOR PRINTED CIRCUIT BOARDS Primary Care Provider + Poonam Manzo INSPECTOR PRINTED CIRCUIT BOARDS Unavailable [phone] Reason for Visit * Reason Comments Weight Loss Here to follow up on weight loss. Not looking to loss weight, but has noticed a decrease in appetite. Normally she eats about every 2 hours. Encounter Details Date Type Department Care Team (Late st Contact Info) Description 04/14/2024 10:00 AM AIRLINE HOSTESS Office Visit [facility] [address] [place] [phone] Rosalind Barton MD [address] [place] [id number] Epigastric pain (Primary Dx) Social History Tobacco Use Types Packs/Day Years [...] Sex Assigned at Female 01/12/2022 10:10 AM AIRLINE HOSTESS Legal Sex Female 4:04 AM AIRLINE HOSTESS Gender Identity Female 01/12/2022 10:10 AM AIRLINE HOSTESS Sexual Orientation Not on file documented as of this encounter Last Filed Vital Signs Vital Sign Reading Time Taken Comments Blood Pressure 118/62 04/14/2024 9:55 AM AIRLINE HOSTESS Pulse 71 04/14/2024 9:55 AM AIRLINE HOSTESS Temperature 36.1 C (96.9 F) 04/14/2024 9:55 AM AIRLINE HOSTESS Respiratory Rate 16 04/14/2024 9:55 AM AIRLINE HOSTESS Oxygen Saturation 100% 04/14/2024 9:55 AM AIRLINE HOSTESS Inhaled Oxygen Concentration - - Weight 66.6 kg (146 lb 12.8 oz) 04/14/2024 9:55 AM AIRLINE HOSTESS Height - - Body Mass Index 22.99 06/09/2023 9:36 AM CDT documented in this encounter Progress Notes * Rosalind Barton MD - 04/14/2024 10:00 AM CST Assessment & Plan ICD-10-CM 1. Epigastric pain R10.13 CBC W PLT No Diff Comprehensive Metabolic Panel Lipase CBC W PLT No Diff Comprehensive Metabolic Panel Lipase Discussed starting with lab evaluation, including lipase. Reviewed anatomy in the epigastric area. Discussed the possibility of gastritis, H. pylori, and ulcer, multiple other GI related etiologies. Discussed the location of the pancreas, liver, gallbladder. Patient is reassured that there has not been any evidence of weight loss in the past 6 weeks. As above all normal, would recommend 2-week treatment with PPI. If above not effective, objective weight loss and/or additional symptoms present and would recommend additional imaging with CT of the abdomen and pelvis, possibly followed by colonoscopy if needed. No follow-ups on file. Subjective Melissa is a 58 year old, presenting for the following health issues: Weight Loss (Here to follow up on weight loss. Not looking to loss weight, but has noticed a decrease in appetite. Normally she eats about every 2 hours. ) 04/14/2024 9:55 AM Additional Questions Roomed by Karolina Accompanied by self History of Present Illness Reason for visit: Weight loss Symptom onset: 1-2 weeks ago Symptoms include: Weight loss Symptom intensity: Mild Symptom progression: Staying the same Had these symptoms before: No What makes it worse: No What makes it better: No She is taking medications regularly. Patient is concerned about unintentional weight loss. Really no objective data for this, she does not weigh herself at home. But she has noticed that herclothes are fitting looser. She is also stable from when she was last here about 6 weeks ago. She did notice that she has generally been eating less. She typically eats about every 2 hours, butrecently noticed that she was not really hungry and had not eaten at all that day. No nausea. She has irregular bowel movements, but this is actually normal for her. Recently stopped Fosamax after taking it for about 6 to 7 months, to see if it would help with leg pain. She does have some constant epigastric discomfort. No heartburn symptoms. She typically gets colonoscopies every 3 years, last one was 2022. History of multiple polyps. No first-degree relatives with colon cancer. No fevers, night sweats, no other constitutional symptoms. She otherwise feels fine. She is just concerned, requesting additional evaluation. She had a executive physical at [place] in July. She lives between here in [place]. Objective BP 118/62 (BP Location: Right arm, Patient Position: Sitting, Cuff Size: Adult Regular) Pulse 71 Temp 96.9 ??F (36.1 ??C) (Tympanic) Resp 16 Wt 66.6 kg (146 lb 12.8 oz) LMP (LMP Unknown) SpO2 100% BMI 22.99 kg/m?? Body mass index is 22.99 kg/m??. Physical Exam Constitutional: Appearance: She is well-developed. HENT: Right Ear: External ear normal. Left Ear: External ear normal. Eyes: General: No scleral icterus. Conjunctiva/sclera: Conjunctivae normal. Cardiovascular: Rate and Rhythm: Normal rate. Pulmonary: Effort: Pulmonary effort is normal. No respiratory distress. Abdominal: General: Abdomen is flat. Bowel sounds are normal. There is no distension. Palpations: Abdomen is soft. There is no mass. Tenderness: There is no guarding or rebound. Comments: Tenderness in the epigastric area, little bit to the right of the midline. Skin: Findings: No rash. Neurological: Mental Status: She is alert. Signed Electronically by: Rosalind Barton MD INE HOSTESS documented in this encounter Nursing Notes * Karolina Christensen, MASTER GLAZIER - 04/14/2024 10:00 AM CST Chief Complaint Patient presents with Weight Loss Here to follow up on weight loss. Not looking to loss weight, but has noticed a decrease in appetite. Normally she eats about every 2 hours. Initial BP 118/62 (BP Location: Right arm, Patient Position: Sitting, Cuff Size: Adult Regular) Pulse 71 Temp 96.9 ??F (36.1 ??C) (Tympanic) Resp 16 Wt 66.6 kg (146 lb 12.8 oz) LMP (LMP Unknown) SpO2 100% BMI 22.99 kg/m?? Estimated body mass index is 22.99 kg/m?? as calculated from the following: Height as of 06/09/23: 1.702 m (5' 7). Weight as of this encounter: 66.6 kg (146 lb 12.8 oz). Medication Reconciliation: complete Karolina Christensen LPN Advance Care Directive reviewed INE HOSTESS documented in this encounter Plan of Treatment Not on file documented as of this encounter Procedures Procedure Name Priority Date/Time Associated Diagnosis Comments LIPASE Routine 04/14/2024 10:35 AM AIRLINE HOSTESS Epigastric pain COMPREHENSIVE METABOLIC PANEL Routine 04/14/2024 10:35 AM AIRLINE HOSTESS Epigastric pain CBC WITH PLATELETS Routine 04/14/2024 10 :35 AM AIRLINE HOSTESS Epigastric pain documented in this encounter Results * Lipase (04/14/2024 10:35 AM AIRLINE HOSTESS) Lipase 38 13 - 60 U/L 04/14/2024 11:29 AM AIRLINE HOSTESS LABORATORY Blood BLOOD SPECIMEN / Unknown Venipuncture / Unknown 04/14/2024 10:35 AM AIRLINE HOSTESS 04/14/2024 10:58 AM AIRLINE HOSTESS us Rosalind Barton MD LAB - BLOOD ORDERABLES Final Res ult LABORATORY [facility] [address] [place] [address], [facility] [phone] * Comprehensive Metabolic Panel (04/14/2024 10:35 AM AIRLINE HOSTESS) Sodium 140 135 - 145 mmol/L 04/14/2024 11:29 AM AIRLINE HOSTESS LABORATORY Potassium 4.1 3.4 - 5.3 mmol/L 04/14/2024 11:29 AM [facility] Carbon Dioxide (CO2) 28 22 - 29 mmol/L 04/14/2024 11:29 AM [facility] Anion Gap 10 7 - 15 mmol/L 04/14/2024 11:29 AM [facility] Urea Nitrogen 14.1 6.0 - 20.0 mg/dL 04/14/2024 11:29 AM [facility] Creatinine 0.88 0.51 - 0.95 mg/dL 04/14/2024 11:29 AM [facility] GFR Estimate 76 >60 mL/min/1.7 3m2 04/14/2024 11:29 AM [facility] Comment:eGFR calculated us2020 CKD-EPI equation. Calcium 9.8 8.8 - 10.4 mg/dL 04/14/2024 11:29 AM [facility] Chloride 102 98 - 107 mmol/L 04/14/2024 11:29 AM [facility] Glucose 89 70 - 99 mg/dL 04/14/2024 11:29 AM [facility] Alkaline Phosphatase 132 40 - 150 U/L 04/14/2024 11:29 AM [facility] AST 35 0 - 45 U/L 04/14/2024 11:29 AM [facility] ALT 40 0 - 50 U/L 04/14/2024 11:29 AM [facility] Protein Total 7.2 6.4 - 8.3 g/dL 04/14/2024 11:29 AM [facility] Albumin 4.5 3.5 - 5.2 g/dL 04/14/2024 11:29 AM [facility] Bilirubin Total 0.6 <=1.2 mg/dL 04/14/2024 11:29 AM [facility] Blood BLOOD SPECIMEN / Unknown Venipuncture / Unknown 04/14/2024 10:35 AM AIRLINE HOSTESS 04/14/2024 10:58 AM [facility] us Rosalind Barton MD LAB - BLOOD ORDERABLES Final Res ult LABORATORY [facility] [address] [place] [address], [facility] [phone] * CBC W PLT No Diff (04/14/2024 10:35 AM AIRLINE HOSTESS) WBC Count 4.8 4.0 - 11.0 10e3/uL 04/14/2024 11:03 AM AIRLINE HOSTESS LABORATORY RBC Count 4.83 3.80 - 5.20 10e6/uL 04/14/2024 11:03 AM AIRLINE HOSTESS LABORATORY Hemoglobin 14.7 11.7 - 15.7 g/dL 04/14/2024 11:03 AM [facility] Hematocrit 42.3 35.0 - 47.0 % 04/14/2024 11:03 AM [facility] MCV 88 78 - 100 fL 04/14/2024 11:03 AM [facility] MCH 30.4 26.5 - 33.0 pg 04/14/2024 11:03 AM [facility] MCHC 34.8 31.5 - 36.5 g/dL 04/14/2024 11:03 AM [facility] RDW 12.0 10.0 - 15.0 % 04/14/2024 11:03 AM [facility] Platelet Count 244 150 - 450 10e3/uL 04/14/2024 11:03 AM [facility] Blood BLOOD SPECIMEN / Unknown Venipuncture / Unknown 04/14/2024 10:35 AM AIRLINE HOSTESS 04/14/2024 10:58 AM AIRLINE HOSTESS us Rosalind Barton MD LAB - BLOOD ORDERABLES Final Res ult LABORATORY [facility] [address] [place] [address], [facility] [phone] documented in this encounter Visit Diagnoses Diagnosis Epigastric pain- Primary Abdominal pain, epigastric documented in this encounter Additional Health Concerns Assessment Noted Time PHQ-9 Depression Total Score: 1 02/23/20 24 10:16 AM AIRLINE HOSTESS documented as of this encounter Care Teams Traffic Workforce Representative Relationship Specialty Start Date End Date Poonam Manzo NP [address] [place] [address] PCP - General Nurse Practitioner 04/14/18 Poonam Manzo NP [address] [place] [address] Assigned PCP 03/18/24 documented as of this encounter
--- OUTSIDE RECORDS SUMMARY | 2024-04-19 12:38 | XMS_ITS | Clinical Summary ---
Author Organization [facility] Address [address] [place] [address] Care Team Providers Care Lead Manufacturing Engineer Name Role Phone Kasey Christianson MD Primary Care Provide r Allergies Active Allergy Reactions Criticality Noted Date Comments Sulfa (Sulfonamide Antibiotics) Rash 03/2012 Medications * This document contains information received from the source organization and may not represent a complete record from that organization. pimecrolimus (ELIDEL) 1 % creamIndications :Facial rash Apply topically to affected area(s) 2 times daily. 15 g 1 Tube 5 5 Active zolpidem (AMBIEN) 5 mg tabletIndication s:Insomnia, unspecified type Take 1 tablet by mouth at bedtime if needed for Sleep. 30 tablet 7 Active estradiol (ESTRACE) 0.5 mg tabletIndication s:Need for prophylactic hormone replacement therapy (postmenopausal) 1 tablet once daily. 90 tablet 3 7 Active polyethylene glycol-electroly te (NULYTELY) 420 gram solutionIndicati ons:Special screening for malignant neoplasms, colon Take 240 mL by mouth every 10 minutes. 4000 mL 7 Active Sod Phos Woodruff-Sod Phos Dibasic (OSMOPREP) 1.5 gram tabIndications:S pecial screening for malignant neoplasms, colon Take as directed on colonoscopy instructions 32 Tab 7 Active calcium carbonate (TUMS) 200 mg calcium (500 mg) chewable tablet Acti ve Active Problems Problem Noted Date Diagnosed Date Special screening for malignant neoplasms, colon 12/18/2016 CHONDROMALACIA PATELLA, LEFT 04/03/2011 HORMONE REPLACEMENT THERAPY 06/05/2010 Sciatica 07/13/2009 NECK PAIN 07/13/2009 SARCOIDOSIS Overview (10/14/2011): Receives annual chest x-ray and NIMO levels every 6 months Immunizations Name Administration Dates Next Due Influenza A (H1N1), Inactivated 01/11/2009 Influenza Virus, Unspecified 12/13/2009 Influenza, IIV3 (Age >=3 years) 01/20/2008,01/29 Pneumococcal Poly,23-Valent (Pneumovax) 11/28/19 06 Td (Age >=7 Years) 02/24/1995,02/24/1995 Td, Preservative Free (age >= 7 Years) 6 Tdap, Unspecified 11/14/2005 Family History Medical History Relation Name Comments Unknown Father Biological fath erUnknown Hypertension Maternal Aunt 1 Cancer-breast Maternal Aunt 2 stage 3 sarita ast cancer Cancer-prostate Maternal Grandfather Pros blanca cancer with mets to bone Osteoporosis Maternal Grandmother Heart Disease Maternal Uncle at age 41 of CAD Heart Disease Mother Tachycardia th at needed to be treated with ablation therapy Relation Name Status Comments Father Other Unknown Maternal Aunt 1 Maternal Aunt 2 Maternal Grandfather Maternal Grandmother Maternal Uncle Mother Alive Social History Tobacco Use Types Packs/Day Years Used Date Smoking Tobacco: Never Smokeless Tobacco: Never Tobacco Cessation:Counseling Given: Yes Alcohol Use Standard Drinks/Week Comments Yes 0 (1 standard drink = 0.6 oz pur e alcohol) less than weekly Comments No Sex and Gender Information Value Date Recorded Sex Assigned at Not on file Legal Sex Female 8:02 AM ELECTROMECHANIC Gender Identity Female 02/13/2022 1:20 PM ELECTROMECHANIC Sexual Orientation Not on file Obstetrics History Para Term AB IAB SAB Ectopic Multiple Livin g Live Births 2 2 2 Date Outcome GA Total Labor Labor/2nd/3rd Weight Sex Type Anes PTL Rose A1 A5 Name Clin Para Para Last Filed Vital Signs Vital Sign Reading Time Taken Comments Blood Pressure 121/57 02/13/2022 2:19 PM ELECTROMECHANIC Pulse 63 02/13/2022 2:19 PM ELECTROMECHANIC Temperature 36.8 C (98.2 F) 02/13/2022 2:19 PM ELECTROMECHANIC Respiratory Rate 18 02/13/2022 2:19 PM ELECTROMECHANIC Oxygen Saturation 99% 02/13/2022 2:19 PM ELECTROMECHANIC Inhaled Oxygen Concentration - - Weight 60.2 kg (132 lb 12.8 oz) 02/13/2022 2:19 PM ELECTROMECHANIC Height 170.2 cm (5' 7) 12/19/2016 9:38 AM CDT Body Mass Index 20.8 12/19/2016 9:38 AM CDT Plan of Treatment Health Maintenance Due Date Last Done Comments Tetanus booster 11/15/2015 11/14/2005, 10/26, 02/24/1995, Additional history exists Pneumococcal series for age 50+ (2 of 2 - PCV) 2016 11/27/2005 Zoster (shingles) series for age 50+ (1 of 2) 2016 BMI (ht and wt on same day) for age 18+ 10/31/2017 10/31/2016, 10/03/2016, 08/03/2015 Depression screening for age 12+ 03/18/2018 03/18/2017, 10/03/2016, 08/03/2015 Mammogram for age 45-75 03/25/2018 03/25/19 18, 10/03/2016, 08/31/2015, Additional history exists Lipids for age 45-75 08/25/2018 08/25/2013, 06/06/19 11 Colonoscopy through age 75 12/21/2019 12/20/2016 COVID-19 vaccine series ( season) 2023 08/24/2020, 07/26/2020 Influenza for age 50-64 10/26/2023 12/14/19 10, 01/11/2009, 01/20/2008, Additional history exists Tdap Completed 11/14/2005 HIV for age 15-65 Completed 10/25/2015 Hepatitis C screening for ag e 18-79 Completed 10/25/2015 Procedures Procedure Name Priority Date/Time Associated Diagnosis Comments XR MAMMO DIAG BILAT IMPLANT Today 03/25/2017 10:14 AM ELECTROMECHANIC Breast lump in female ANTI HIV 1/2 Routine 10/25/2015 8:40 AM CDT Screen for STD (sexually transmitted disease) ANTI HCV Routine 10/25/2015 8:40 AM CDT Screen for STD (sexually transmitted disease) LIPID PANEL Routine 08/25/2013 9:03 AM CDT Routine physical examination from Last 3 Months or Most Recently Relevant to Health Maintenance Results * XR MAMMO DIAG BILAT IMPLANT (03/25/2017 10:14 AM ELECTROMECHANIC) Anatomical Region Laterality Modality BREASTS, Breast Left, Breast Right Bilateral Mammography, Other 03/25/2017 10:4 6 AM ELECTROMECHANIC Narrative 03/25/2017 10:46 AM ELECTROMECHANIC EXAM: US BREAST BILATERAL LIMITED, XR MAMMO DIAG BILAT IMPLANT INDICATION: BERTRAM BRAVO who is 51 years old is referred for Breast lump in female. COMPARISON: 10/03/2016 through 06/10/2008 FINDINGS: Mammography: There are scattered fibroglandular densities. Bilateral breast implants are present. No dominant masses, architectural distortion or suspicious microcalcification is identified. Targeted ultrasound: Ultrasound in the vicinity of both palpable lesions demonstrates a normal intermixed parenchymal and fat pattern. No mass or architectural distortion is identified in either breast. IMPRESSION AND RECOMMENDATION: No suspicious finding to correlate with the palpable abnormalities of both breasts. Analysis by [employer] computer detection software version 9.3 was done. BI-RADS CODE: 2-Benign finding(s) RECOMMENDATION: Repeat imaging of these palpable lesions could be performed if the patient feels larger. Otherwise, the patient is due for bilateral screening mammography 03/24/2018. Procedure Note Marito Mills MD - 03/25/2017 EXAM: US BREAST BILATERAL LIMITED, XR MAMMO DIAG BILAT IMPLANT INDICATION: BERTRAM BRAVO who is 51 years old is referred for Breastlump in female. COMPARISON: 10/03/2016 through 06/10/2008 FINDINGS: Mammography: There are scattered fibroglandular densities. Bilateralbreast implants are present. No dominant masses, architectural distortionor suspicious microcalcification is identified. Targeted ultrasound: Ultrasound in the vicinity of both palpable lesionsdemonstrates a normal intermixed parenchymal and fat pattern. No mass orarchitectural distortion is identified in either breast. IMPRESSION AND RECOMMENDATION: No suspicious finding to correlate with the palpable abnormalities of bothbreasts. Analysis by [employer] computer detection software version 9.3 marcel. BI-RADS CODE: 2-Benign finding(s) RECOMMENDATION: Repeat imaging of these palpable lesions could beperformed if the patient feels larger. Otherwise, the patient is due forbilateral screening mammography 03/24/2018. Kasey Christianson MD MAMMO Final Result * ANTI HCV (10/25/2015 8:40 AM CDT) HEPATITIS C ANTIBODY Non-Reacti ve Non-Reacti ve 10/25/2015 9:21 PM CDT [facility] Blood BLOOD SPECIMEN / Unknown Venipuncture / Unknown 10/25/2015 8:40 AM CDT 10/25/2015 8:46 AM CDT Narrative [facility] - 10/25/2015 9:21 PM CDT Antibodies to HCV not detected; does not exclude the possibility of exposure to HCV. Kasey Christianson MD SEND OUTS Final Result [facility] [address] [place] [address], * ANTI HIV 1/2 (10/25/2015 8:40 AM CDT) HIV-1/HIV-2 ANTIBODY Non-Reacti ve Non-Reacti ve 10/25/2015 9:30 PM CDT [facility] Blood BLOOD SPECIMEN / Unknown Venipuncture / Unknown 10/25/2015 8:40 AM CDT 10/25/2015 8:46 AM CDT Narrative [facility] - 10/25/2015 9:30 PM CDT HIV-1 p24 and HIV-1/HIV-2 Ab not detected us Kasey Christianson MD SEND OUTS Final Result [facility] [address] [place] [address], * LIPID PANEL (08/25/2013 9:03 AM CDT) CHOLESTEROL,TOTAL 166 <200 mg/dL 08/25/2013 10:[address] [facility] TRIGLYCERIDES 81 <150 mg/dL 08/25/2013 10:[address] [facility] HDL CHOLESTEROL 52 >23 - 92 mg/dL 08/25/2013 10:[address] [facility] NON-HDL CHOLESTEROL 114 <145 mg/dl 08/25/2013 10:[address] [facility] CHOL/HDL RATIO 3.19 <4.50 08/25/2013 10:[address] [facility] LDL CHOLESTEROL 98 <100 mg/dL 08/25/2013 10:[address] [facility] PATIENT STATUS NOT GIVEN 08/25/2013 10:[address] [facility] Blood specimen (specimen) BLOOD SPECIMEN / Unknown Venipuncture / Unknown 08/25/2013 9:03 AM CDT 08/25/2013 9:06 AM CDT us Kasey Christianson MD CHEMISTRY Final Result [facility] [address] [place] [address] from Last 3 Months or Most Recently Relevant to Health Maintenance Insurance [facility] Advance Directives * Full Code (Latest Code Status on File) Date Activated Date Inactivated Comments 12/19/2016 9:32 AM 12/19/2016 3:39 PM * Full Code Date Activated Date Inactivated Comments 03/23/2014 10:28 AM 03/23/2014 5:37 PM Care Teams Lead Manufacturing Engineer Relationship Specialty Start Date End Date Kasey Christianson MD PCP - General Family Practice 01/24/10
--- OUTSIDE RECORDS SUMMARY | 2024-04-19 12:38 | XMS_ITS | Encounter Summary ---
Author Organization [facility] Address [address] [place] [address] Care Team Providers Care Historiographer Name Role Phone Poonam Manzo DIAL PAINTER Primary Care Provider + Poonam Manzo DIAL PAINTER Unavailable [phone] Susana Mensah MD Unavailable Jessica Coronado PA-Nolan Unavailable [phone] Poonam Manzo DIAL PAINTER Unavailable [phone] Reason for Visit * Reason Onset Date Comments Appointment 02/05/2022 colonoscopy Encounter Details Date Type Department Care Team (Late st Contact Info) Description 02/05/2022 Telephone [facility] [address] [place] [address] Susana Mensah MD [address] [place] [id number] Appointment (colonoscopy) Social History Tobacco Use Types Packs/Day Years [...] PHQ-2 Answer Date Recorded PHQ-2 Score 0 02/05/2022 Comments No Sex and Gender Information Value Date Recorded Sex Assigned at Female 01/12/2022 10:10 AM OUTSIDE CUTTER HAND Legal Sex Female 4:04 AM OUTSIDE CUTTER HAND Gender Identity Female 01/12/2022 10:10 AM OUTSIDE CUTTER HAND Sexual Orientation Not on file COVID-19 Exposure Response Date Recorded In the last 10 days, have yo u been in contact with someone who was confirmed or suspected to have Coronavirus/COVID-19? No / Unsure 02/05/2022 9:05 AM OUTSIDE CUTTER HAND documented as of this encounter Miscellaneous Notes * Telephone Encounter - Susana Mensah MD - 02/06/2022 3:21 PM CST Ok to schedule next routine available for diagnostic colonoscopy. Thanks! Susana Mensah MD on 02/06/2022 at 3:21 PM IDE CUTTER HAND * Telephone Encounter - Vivi Bridges - 02/05/2022 1:43 PM CSTSummary: colonoscopy [facility] Diagnostic Referral Patient has a referral for a colonoscopy with a diagnosis of Frequent stools History of colonic polyps. Please advise. Patient would be due for scope after 08/31/2022. Last one was 09/01/2019 with recommendation of 3 year follow up polyps removed. Patient is now having frequent stools, referral was put in as a diagnostic. Thank you,Vivi Bridges on 02/05/2022 at 1:46 PM IDE CUTTER HAND documented in this encounter Plan of Treatment Not on file documented as of this encounter Visit Diagnoses Not on filedocumented in this encounter Additional Health Concerns Assessment Noted Time PHQ-9 Depression Total Score: 0 04/21/19 7:38 AM OUTSIDE CUTTER HAND documented as of this encounter Care Teams Historiographer Relationship Specialty Start Date End Date Poonam Manzo NP [address] [place] [address] PCP - General Nurse Practitioner 04/14/18 Poonam Manzo, DIAL PAINTER [address] [place] [address] Assigned PCP 10/09/17 08/16/23 Susana Mensah MD [address] [place] [address] Assigned Surgical Provider 05/04/22 12/16/23 Jessica Coronado PA-C [address] [place] [id number] Assigned PCP 08/17/23 03/17/24 Poonam Manzo DIAL PAINTER [address] [place] [address] Assigned PCP 03/18/24 documented as of this encounter
--- OUTSIDE RECORDS SUMMARY | 2024-04-19 12:38 | XMS_ITS | Clinical Summary ---
Author Organization [facility] Address [address] [place] [address] Care Team Providers Care Supervisor [employer] Name Role Phone Unavailable Primary Care Provider Unavailabl e Source Comments Patient records contain information from all sites at [facility]. For routine questions regarding patient records, call [phone] during business hours, M-F 8:00 AM - 5:00 PM Central Time. Record requests for emergency care only can be directed to [phone] at any time.[facility] Allergies Active Allergy Reactions Criticality Noted Date Comments Sulfa (Sulfonamide Antibiotics) Itching,Rash Medications zolpidem (AMBIEN) 5 mg tablet Take 5 mg by mouth at bedtime as needed for sleep. Active estradioL (ESTRACE) 0.1 mg/g (0.01%) vaginal cream Apply 1 gram vulvovaginally twice weekly. 42.5 g 3 4 Active calcium carbonate 1,250 mg (500 mg calcium) tablet Take 500 mg of calcium by mouth daily with breakfast. 500 mg Active alendronate (Fosamax) 70 mg/75 mL solution 70 mg daily before morning meal. 4 Active Active Problems Patient Care Coordination No te Formatting of this note migh t be different from the original. [facility] Colon Cancer Screening Last colon screen: Colonoscopy Year: 2022 First Degree Relative with Cancer: No Prep: Unknown - previous procedure not completed at [facility] Suite: Unknown Results: Unknown Next Colon screen: 2025 Breast Cancer Screening Last mammogram: Unknown Screening Mammogram Results: Not Available Future supplemental Imaging: Unknown Increased Breast Density: Unknown History: N/A First Degree Relative with Cancer: Unknown Next Breast Screen: Annual Mammogram Cervical Cancer Screening Last Pap: Unknown HPV Status: Unknown History of Abnormal Pap within the past 10 years?: Unknown Hysterectomy: Unknown COREY (Diethylstilbestrol) exposure: Unknown Next Pap: Unknown Bone Mineral Density Last BMD: Unknown - Patient has never had a BMD at [facility] Next BMD: Age 66 per female protocol Cardiology: Last ECG: Unknown Next EC Lipoprotein (a): Will be completed during upcoming physical Coronary Calcium Scoring: Will be completed during upcoming physical HIV To be completed during upcoming physical HCV To be completed during upcoming physical Problem Noted Date Diagnosed Date Elevated Alkaline Phosphatase 07/24/2023 Polyp Colon Personal History, Unspecified Type 0 07/17/2023 Encounters Date Type Department Care Team Description 03/22/2024 Clinical Communication [facility] [place], [place] [address] [place] [address] William Fitzgerald M.D. from Last 3 Months Immunizations Immunization Administration Dates Next Due H1N1 All Forms 01/11/2009 HepA Adult 07/27/2018 Influenza, Seasonal, Injectable 01/20/2008,01/29 PPSV23 11/27/2005 Td (Adult), adsorbed 02/24/1995 Td Preservative Free (TENIVA C, DECAVAC) 11/14/2005 Td, (Adult) Unspecified 11/14/2005 Tdap 08/03/2018 TyVi (inj) 07/27/2018 influenza vaccine QV(FLUBLOK ) (18 years or older) (PF) 02/05/2021 influenza vaccine quad (FLUZONE/FLUARIX) (6 months and older)(PF) 02/05/2022,01/25/2020,01/13/2019,2018,12/30/2016 Family History Medical History Relation Name Comments No Known Problems Father Prostate cancer Maternal Grandfather Lawerance Black Glaucoma Maternal Grandmother Anxiety disorder Mother Tisha Jarquin Arthritis Mother Tisha Jarquin Clotting disorder Mother Tisha Jarquin Depression Mother Tisha Jarquin Diabetes Mother Tisha Jarquin Hypertension Mother Tisha Jarquin Sleep apnea Mother Tisha Jarquin htn Mother Tisha Jarquin Breast cancer Mother's Sister Sydney Callahan Coronary artery disease Paternal Grandmother Diane granados No Known Problems Sister Relation Name Status Comments Father Maternal Grandfather Laweranccyndie Black Maternal Grandmother Mother Tisha Jarquin Mother's Sister Sydney Callahan Paternal Grandmother Diane Black Sister Social History Tobacco Use Types Packs/Day Years Used Date Smoking Tobacco: Never Passive Smoke Exposure: Past Smokeless Tobacco: Never Tobacco Cessation:Counseling Given: Not Answered Comments:Parents smoked growing Alcohol Use Standard Drinks/Week Comments Not Currently 2 (1 standard drink = 0.6 oz pur e alcohol) [facility] Utilities Answer Date Recorded In the past 12 months has e [employer], gas, oil, or water [employer] threatened to shut off services in your [...] your living situation today? I have a [facility] place to live 07/11/2023 Comments No Sex and Gender Information Value Date Recorded Sex Assigned at Female 07/11/2023 1:27 PM CDT Legal Sex Female 8:54 AM MARINE INSULATOR Gender Identity Female 07/11/2023 1:27 PM CDT Sexual Orientation Straight 07/11/2023 1: 27 PM CDT Last Filed Vital Signs Vital Sign Reading Time Taken Comments Blood Pressure 127/69 07/17/2023 1:12 PM CDT Pulse 63 07/17/2023 1:12 PM CDT Temperature 36.3 C (97.3 F) 08/20/2023 9:59 AM CDT Respiratory Rate - - Oxygen Saturation - - Inhaled Oxygen Concentration - - Weight 66 kg (145 lb 8.1 oz) 08/20/2023 9:59 AM CDT Height 171.3 cm (5' 7.44) 08/20/2023 9:59 AM CD T Body Mass Index 22.49 08/20/2023 9:59 AM CDT Plan of Treatment Health Maintenance Due Date Last Done Comments CT Colonography 1966 Cologuard 1966 Colonoscopy 1966 Colorectal Cancer Surveillance 1966 Pneumococcal vaccine (50+ years) (2 of 2 - PCV) 2016 11/27/2005 Zoster Vaccines (1 of 2) 2016 COVID-19 Vaccine (3 - season) 2023 08/24/2020, 07/26/2020 Depression Screening (Annual PHQ-2) 02/25/2024 Mammogram 07/16/2024 07/17/2023, 03/27, 04/03/2021, Additional history exists Fasting Glucose for Diabetes Screening 04/14/2027 04/14/2024, 07/17/2023, 07/17/2023, Additional history exists Lipid (Cholesterol) Screening 07/16/2028 07/17/2023, 02/05/2022, 02/05/2021, Additional history exists DTaP,Tdap,and Td Vaccines (2 - Td or Tdap) 08/03/2028 08/03/2018, 11/14/2005, 11/14/2005, Additional history exists HIV Screening Completed 07/17/2023 Hepatitis C Screening Completed 07/17/2023 Influenza Vaccine Completed 12/16/2023, , 02/05/2021, Additional history exists IPV Vaccines Aged Out No longer eligi ble based on patient's age to complete this topic Goals Goal Patient Goal Type Associated Problems Recent Progress Patient-Stated? Author [facility] - Insomia Care Plan [facility] - Insomnia No William Fitzgerald M.D. [facility] - Nicotine Dependency Chronic Care Plan [facility] - Insomnia No William Fitzgerald M.D. [facility] - Insomnia Worry Care Plan [facility] - Insomnia Worry Priority No Patient, Online Services [facility] Care Plan [facility] EDUCATION No Patient, Online Services [facility] Care Plan [facility] EDUCATION No Patient, Online Services [facility] - Insomnia Self Talk Care Plan [facility] - Insomnia Self Talk Priority No Patient, Online Services [facility] INSOMN[facility] SLEEP DIARY 4 DAYS Care Plan [facility] SLEEP DIARY 4 DAYS No Patient, Online Services Medical Devices Implanted Type Area Relay Adjuster Device Identifier Shelf Expiration Date Model / Serial / Lot Breast Implant Breast Implant Bilateral : Chest Procedures Procedure Name Priority Date/Time Associated Diagnosis Comments BI BREAST SCREENING BILATERAL WITH TOMOSYNTHESIS RAD - Routine (most inpatients and all outpatients) 07/17/2023 11:11 AM CDT Screening Mammogram Breast Cancer HEMOGLOBIN A1C, B Routine 07/17/2023 8:00 AM CDT Cardiac Vascular Disease Screening Multisystem Laboratory Testing Adult Screening Examination Diabetes Mellitus HCV AB SCRN W/REFLEX TO HCV PCR, S Routine 07/17/2023 8:00 AM CDT Multisystem Laboratory Testing Adult HIV-1/-2 AG AND AB SCREEN, PLASMA Routine 07/17/2023 8:00 AM CDT Multisystem Laboratory Testing Adult Human Immunodeficiency Virus Screening LIPID PANEL, S Routine 07/17/2023 8:00 AM CDT Cardiac Vascular Disease Screening Multisystem Laboratory Testing Adult Screening Lipid from Last 3 Months or Most Recently Relevant to Health Maintenance Results * BI Breast Screening Bilateral with Tomosynthesis (07/17/2023 11:11 AM CDT) Anatomical Region Laterality Modality Breast, Breast Imaging RST L OS, Breast Imaging ARZ LOS, Breast Imaging FLA LOS Bilateral Mammography Addenda Addendum by Julissa Reyes M.D. on 07/17/2023 9:20 PM CDT ADDENDUM: AMENDMENT TO ADD COMPARISON EXAMS COMPARISON EXAMS: Multiple prior outside breast imaging exams dating back to 03/11/2014 FINDINGS: When compared to prior exams, no suspicious findings are evident. RECOMMENDATIONS: Annual Screening Mammogram ASSESSMENT: BI-RADS: 1: Negative. Impressions 07/17/2023 1:06 PM CDT Incomplete. Comparison images needed. RECOMMENDATION: Comparison With Prior Exam(s) Comparison with prior mammograms is requested and will be arranged by the Department of Radiology. If prior mammograms cannot be obtained, annual mammography is recommended. ASSESSMENT: BI-RADS: 0 - Incomplete: Need Prior Mammograms for Comparison. Narrative 07/17/2023 1:06 PM CDT EXAM: BI BREAST SCREENING BILATERAL WITH TOMOSYNTHESIS Current study was evaluated with a Computer Aided Detection (CAD) system. INDICATION: Screening mammogram. COMPARISON: No prior exams were available for comparison. DENSITY: b. There are scattered areas of fibroglandular density. FINDINGS: No mammographic findings of malignancy. Bilateral retropectoral saline implants. However, comparison with prior exams would be helpful for interpretation. Procedure Note Julissa Reyes M.D. - 07/17/2023 EXAM: BI BREAST SCREENING BILATERAL WITH TOMOSYNTHESIS Current study was evaluated with a Computer Aided Detection (CAD) system. INDICATION: Screening mammogram. COMPARISON: No prior exams were available for comparison. DENSITY: b. There are scattered areas of fibroglandular density. FINDINGS: No mammographic findings of malignancy. Bilateral retropectoralsaline implants. However, comparison with prior exams would be helpful forinterpretation. IMPRESSION: Incomplete. Comparison images needed. RECOMMENDATION: Comparison With Prior Exam(s) Comparison with prior mammograms is requested [facility] If prior mammograms cannot be obtained, annualmammography is recommended. ASSESSMENT: BI-RADS: 0 - Incomplete: Need Prior Mammograms forComparison. Alka Zimmerman M.D., M.P.H. IMG BI PROCEDURES E dited Result - Final * HIV-1/-2 Ag and Ab Screen, Plasma (07/17/2023 8:00 AM CDT) HIV-1/-2 Ag and Ab Screen, P Negative Negative 07/17/2023 1:10 PM CDT [facility] Comment: Negative result does not rule out HIV infection. If exposure to HIV infection occurred <14 days ago, contact the laboratory to request addition of HIV-1/HIV-2 RNA detection, Plasma (HIP12). Blood (Blood, Venous) 07/17/2023 8:00 AM CDT 07/17/2023 11:32 AM CDT Alka Zimmerman M.D., M.P.H. LAB MICROBIOLOGY - BLOOD ORDERABLES Final Result [facility] [address] [place] [address] [facility] [address] [place] [address] * (ABNORMAL) Lipid Panel (07/17/2023 8:00 AM CDT) Triglycerides 85 mg/dL 07/17/2023 9:28 AM CDT [facility] Comment: ----REFERENCE VALUE---- Normal: <150 mg/dL Borderline High: 150-199 mg/dL High: 200-499 mg/dL Very High: > or =500 mg/dL Cholesterol, Total 236(H) mg/dL 2023 9:28 AM CDT [facility] Comment: ----REFERENCE VALUE---- Desirable: < 200 mg/dL Borderline High: 200 - 239 mg/dL High: > or = 240 mg/dL Cholesterol, LDL, Calculated 164(H) mg/dL 07/17/2023 9:28 AM CDT [facility] Comment: ----REFERENCE VALUE---- Desirable: <100 mg/dL Above Desirable: 100-129 mg/dL Borderline High: 130-159 mg/dL High: 160-189 mg/dL Very High: >=190 mg/dL ----ADDITIONAL INFORMATION---- LDL cholesterol calculated using the Cisse/NIH equation. Cholesterol, HDL, S 57 >=50 mg/dL 07/17/2023 9:28 AM CDT DTL Cholesterol, Non-HDL, Calculated 179(H) mg/dL 07/17/2023 9:28 AM CDT [facility] Comment: ----REFERENCE VALUE---- Desirable: <130 mg/dL Above Desirable: 130-159 mg/dL Borderline High: 160-189 mg/dL High: 190-219 mg/dL Very High: > or =220 mg/dL Fasting (8 HR or more) Yes 07/17/2023 9:03 AM CDT DTL Blood (Blood, Venous) 07/17/2023 8:00 AM CDT 07/17/2023 9:03 AM CDT Alka Zimmerman M.D., M.P.H. LAB BLOOD ADD-ON Fi nal Result [facility] [address] [place] [address], [facility] [address] [place] [address] * HCV Ab Scrn w/Reflex to HCV PCR, Serum (07/17/2023 8:00 AM CDT) HCV Ab Screen, S Negative Negative 07/17/2023 1:11 PM CDT [facility] Comment: Consumption of high-dose biotin supplement within 12 hours of blood collection for this test can cause false-negative results. Blood (Blood, Venous) 07/17/2023 8:00 AM CDT 07/17/2023 11:32 AM CDT Alka Zimmerman M.D., M.P.H. LAB MICROBIOLOGY - BLOOD ORDERABLES Final Result [facility] [address] [place] [address] [facility] [address] [place] [address] from Last 3 Months or Most Recently Relevant to Health Maintenance Additional Health Concerns Active Problems Noted Date Diagnosed Date [place] Care Plan - Insomnia 09/01/2023 [facility] Plan - Insomnia Worry Priority 024 [facility] EDUCATIO N 09/02/2023 [facility] EDUCATIO N 09/02/2023 [place] Care Plan - Insomnia Self Talk Priority 11/2023 [facility] SLEEP DIARY 4 DAYS 11/11/2023 Insurance [facility]
--- OUTSIDE RECORDS SUMMARY | 2024-04-19 12:38 | XMS_ITS | Encounter Summary ---
Author Organization [facility] Address [address] [place] [address] Care Team Providers Care Machinery Cleaner Name Role Phone Poonam Manzo MARINE RAILWAY OPERATOR Primary Care Provider + Poonam Manzo MARINE RAILWAY OPERATOR Unavailable + [phone] Abhilash Enrique DO Unavailable [phone] Ayush Boyd DPTasia Unavailable [phone] Susana Mensah MD Unavailable Jessica Coronado PA-C Unavailable [phone] Poonam Manzo MARINE RAILWAY OPERATOR Unavailable + [phone] Encounter Details Date Type Department Care Team (Late st Contact Info) Description 10/23/2018 Orders Only [facility] [address] [place] [id number] Adrián Garrett Health care maintenance; Sarcoidosis; Multiple joint pain Social History Tobacco Use Types Packs/Day Years [...] Sex Assigned at Female 01/12/2022 10:10 AM BILLIARD PARLOR MANAGER Legal Sex Female 4:04 AM BILLIARD PARLOR MANAGER Gender Identity Female 01/12/2022 10:10 AM BILLIARD PARLOR MANAGER Sexual Orientation Not on file documented as of this encounter Plan of Treatment Not on file documented as of this encounter Procedures Procedure Name Priority Date/Time Associated Diagnosis Comments VITAMIN D TOTAL GH Routine 10/23/2018 9: 10 AM CDT Sarcoidosis Multiple joint pain THYROTROPIN GH Routine 10/23/2018 9:10 AM CDT Health care maintenance COMPREHENSIVE METABOLIC PANEL Routine 10/23/2018 9:10 AM CDT Health care maintenance CBC WITH PLATELETS Routine 10/23/2018 9: 10 AM CDT Health care maintenance documented in this encounter Results * Vitamin D Total GH (10/23/2018 9:10 AM CDT) Vitamin D Total 28.6 ng/mL 9 2:02 PM CDT [facility] Comment: Comments: Deficiency: <10 ng/mL Insufficiency: 10-29 ng/mL Sufficiency: 30-100 ng/mL Possible Toxicity: >100 ng/mL Blood specimen (specimen) 10/23/2018 9:10 AM CDT 10/23/2018 9:11 AM CDT us Poonam Manzo MARINE RAILWAY OPERATOR LAB - BLOOD ORDERABLES F inal Result [facility] [address] [place] [address], [facility] [phone] * CBC with platelets (10/23/2018 9:10 AM CDT) WBC 4.4 4.0 - 11.0 10e9/L 10/23/2018 9:25 AM CDT [facility] RBC Count 4.61 3.8 - 5.2 10e12/L 10/23/2018 9:25 AM CDT [facility] Hemoglobin 13.9 11.7 - 15.7 g/dL 10/23/2018 9:25 AM CDT [facility] Hematocrit 40.2 35.0 - 47.0 % 10/23/2018 9:25 AM CDT [facility] MCV 87 78 - 100 fl 10/23/2018 9:25 AM CDT [facility] MCH 30.2 26.5 - 33.0 pg 10/23/2018 9:25 AM CDT [facility] MCHC 34.6 31.5 - 36.5 g/dL 10/23/2018 9:25 AM T [facility] RDW 11.9 10.0 - 15.0 % 10/23/2018 9:25 AM T [facility] Platelet Count 204 150 - 450 10e9/L 10/23/2018 9:25 AM CDT [facility] Blood specimen (specimen) 10/23/2018 9:10 AM CDT 10/23/2018 9:11 AM CDT us Poonam aMnzo MARINE RAILWAY OPERATOR LAB - BLOOD ORDERABLES F inal Result [facility] [address] [place] [address], [facility] [phone] * Comprehensive metabolic panel (10/23/2018 9:10 AM CDT) Sodium 140 134 - 144 mmol/L 10/23/2018 10:14 AM CDT [facility] Potassium 3.9 3.5 - 5.1 mmol/L 10/23/2018 10:14 AM T [facility] Chloride 106 98 - 107 mmol/L 10/23/2018 10:14 AM T [facility] Carbon Dioxide 27 21 - 31 mmol/L 10/23/2018 10:14 AM T [facility] Anion Gap 7 3 - 14 mmol/L 10/23/2018 10:14 AM T [facility] Glucose 94 70 - 105 mg/dL 10/23/2018 10:14 AM T [facility] Urea Nitrogen 16 7 - 25 mg/dL 10/23/2018 10:14 AM [facility] Creatinine 0.90 0.60 - 1.20 mg/dL 10/23/2018 10:14 AM T [facility] GFR Estimate 66 >60 mL/min/{1. 73_m2} 10/23/2018 10:14 AM T [facility] GFR Estimate If Black 80 >60 mL/min/{1. 73_m2} 10/23/2018 10:14 AM T [facility] Calcium 9.4 8.6 - 10.3 mg/dL 10/23/2018 10:14 AM T [facility] Bilirubin Total 0.9 0.3 - 1.0 mg/dL 10/23/2018 10:14 AM [facility] Albumin 4.4 3.5 - 5.7 g/dL 10/23/2018 10:14 AM T [facility] Protein Total 7.0 6.4 - 8.9 g/dL 10/23/2018 10:14 AM [facility] Alkaline Phosphatase 94 34 - 104 U/L 10/23/2018 10:14 AM [facility] ALT 25 7 - 52 U/L 10/23/2018 10:14 AM [facility] AST 26 13 - 39 U/L 10/23/2018 10:14 AM [facility] Blood specimen (specimen) 10/23/2018 9:10 AM CDT 10/23/2018 9:11 AM CDT us Poonam Manzo NP LAB - BLOOD ORDERABLES F inal Result [facility] [address] [place] [address], [facility] [phone] * Thyrotropin GH (10/23/2018 9:10 AM CDT) Thyrotropin 0.99 0.34 - 5.60 IU/mL 10/23/2018 10:39 AM CDT [facility] Blood specimen (specimen) 10/23/2018 9:10 AM CDT 10/23/2018 9:11 AM CDT us Poonam Manzo NP LAB - BLOOD ORDERABLES F inal Result [facility] [address] [place] [address], [facility] [phone] documented in this encounter Visit Diagnoses Diagnosis Health care maintenance Unspecified general medical examination Sarcoidosis Multiple joint pain Pain in joint, multiple sites documented in this encounter Additional Health Concerns Assessment Noted Time PHQ-9 Depression Total Score: 0 04/21/19 19 7:38 AM BILLIARD PARLOR MANAGER documented as of this encounter Care Teams Machinery Cleaner Relationship Specialty Start Date End Date Poonam Manzo NP [address] [place] [address] PCP - General Nurse Practitioner 04/14/18 Poonam Manzo NP [address] [place] [address] Assigned PCP 10/09/17 08/16/23 Abhilash Enrique DO [address] [place] [address] Assigned Heart and Vascular Provider 12/17/19 05/27/20 Ayush Boyd DPM [facility] [address] [place] [id number] Assigned Musculoskeletal Provider 12/17/19 09/05/20 Susana Mensah MD [address] [place] [address] Assigned Surgical Provider 05/04/22 Jessica Coronado PA-C [address] [facility] [place] [address] Assigned PCP 08/17/23 03/17/24 Poonam Manzo NP [address] [place] [address] Assigned PCP 03/18/24 documented as of this encounter
--- OUTSIDE RECORDS SUMMARY | 2024-04-19 12:38 | XMS_ITS | Encounter Summary ---
Author Organization [facility] Address [address] [place] [address]. [place] [address] Care Team Providers Care Windmill Mechanic Name Role Phone Poonam Manzo VICE PRESIDENT RISK MANAGEMENT Primary Care Provider + Poonam Manzo VICE PRESIDENT RISK MANAGEMENT Unavailable [phone] Abhilash Enrique DO Unavailable [phone] Ayush Boyd DPTasia Unavailable [phone] Susana Mensah MD Unavailable Jessica Coronado PA-C Unavailable [phone] Poonam Manzo VICE PRESIDENT RISK MANAGEMENT Unavailable + [phone] Encounter Details Date Type Department Care Team (Late st Contact Info) Description 12/23/2018 [facility] Medical Advice [facility] [address] [address] Tianna Smallwood CMA Social History Tobacco Use Types Packs/Day Years Used Date Smoking Tobacco: Never Smokeless Tobacco: Never Alcohol Use Standard Drinks/Week Comments Yes 0 (1 standard drink = 0.6 oz pur e alcohol) wine/beer 3 times a month AUDIT-C Answer Date Recorded Q1: How often do you have a drink containing alc ohol? Monthly or less 10/23/2018 Average Number of Drinks Not on file 019 Frequency of Binge Drinking Not on file 09/26 PHQ-2 Answer Date Recorded PHQ-2 Score 0 09/03/2018 Comments No Sex and Gender Information Value Date Recorded Sex Assigned at Female 01/12/2022 10:10 AM FOLDER SEAMER AUTOMATIC Legal Sex Female 4:04 AM FOLDER SEAMER AUTOMATIC Gender Identity Female 01/12/2022 10:10 AM FOLDER SEAMER AUTOMATIC Sexual Orientation Not on file documented as of this encounter Plan of Treatment Not on file documented as of this encounter Visit Diagnoses Not on filedocumented in this encounter Additional Health Concerns Assessment Noted Time PHQ-9 Depression Total Score: 0 04/21/19 19 7:38 AM FOLDER SEAMER AUTOMATIC documented as of this encounter Care Teams Windmill Mechanic Relationship Specialty Start Date End Date Poonam Manzo, VICE PRESIDENT RISK MANAGEMENT [address] [place] [id number] PCP - General Nurse Practitioner 04/14/18 Poonam Manzo, VICE PRESIDENT RISK MANAGEMENT [address] [place] [address] Assigned PCP 10/09/17 08/16/23 Abhilash Enrique DO [address] [place] [address] Assigned Heart and Vascular Provider 12/17/19 05/27/20 Ayush Boyd DPM [facility] [address] [place] [id number] Assigned Musculoskeletal Provider 12/17/19 09/05/20 Susana Mensah MD [address] [place], [place] [address] Assigned Surgical Provider 05/04/22 Jessica Coronado PA-C [address] [facility] [place], [place] [address] Assigned PCP 08/17/23 03/17/24 Poonam Manzo NP [address] [place] [address] Assigned PCP 03/18/24 documented as of this encounter
--- OUTSIDE RECORDS SUMMARY | 2024-04-19 12:38 | XMS_ITS | Encounter Summary ---
Author Organization [facility] Address [address] [place] [address]. [place] [address] Care Team Providers Care Drapery Supervisor Name Role Phone Poonam Manzo NP Primary Care Provider + Poonam Manzo TOOLS PROGRAMMER Unavailable [phone] Ayush Boyd DPM Unavailable [phone] Susana Mensah MD Unavailable Jessica Coronado PA-C Unavailable [phone] Poonam Manzo TOOLS PROGRAMMER Unavailable [phone] Encounter Details Date Type Department Care Team (Late st Contact Info) Description 07/27/2020 Documentation Only INTERFACED REPORT Unknown, Provider Social [...] Sex Assigned at Female 01/12/2022 10:10 AM CONSTRUCTION MANAGEMENT INSTRUCTOR Legal Sex Female 4:04 AM CONSTRUCTION MANAGEMENT INSTRUCTOR Gender Identity Female 01/12/2022 10:10 AM CONSTRUCTION MANAGEMENT INSTRUCTOR Sexual Orientation Not on file documented as of this encounter Plan of Treatment Not on file documented as of this encounter Visit Diagnoses Not on filedocumented in this encounter Additional Health Concerns Assessment Noted Time PHQ-9 Depression Total Score: 0 04/21/19 7:38 AM CONSTRUCTION MANAGEMENT INSTRUCTOR documented as of this encounter Care Teams Drapery Supervisor Relationship Specialty Start Date End Date Poonam Manzo, TOOLS PROGRAMMER [address] [place] [address] PCP - General Nurse Practitioner 04/14/18 Poonam Manzo, TOOLS PROGRAMMER [address] [place] [id number] Assigned PCP 10/09/17 08/16/23 Ayush Boyd DPM [facility] [address] [place] [id number] Assigned Musculoskeletal Provider 12/17/19 09/05/20 Susana Mensah MD [address] [place] [address] Assigned Surgical Provider 05/04/22 Jessica Coronado PA-C [address] [facility] [place] [address] Assigned PCP 08/17/23 03/17/24 Poonam Manzo, TOOLS PROGRAMMER [address] [place] [address] Assigned PCP 03/18/24 documented as of this encounter
--- OUTSIDE RECORDS SUMMARY | 2024-04-19 12:38 | XMS_ITS | Encounter Summary ---
Author Organization [facility] Address [address] [place] [address] Care Team Providers Care Substation Operator Name Role Phone Kasey Christianson MD Primary Care Provider No Ref-Primary, Physician Primary Care Provider Poonam Manzo MONOTYPIST Unavailable Poonam Manzo MONOTYPIST Primary Care Provider + Poonam Manzo MONOTYPIST Unavailable Abhilash Enrique DO Unavailable Ayush Boyd DPM Unavailable [phone] Susana Mensah MD Unavailable Jessica Coronado PA-C Unavailable Poonam Manzo MONOTYPIST Unavailable Encounter Details Date Type Department Care Team (Late st Contact Info) Description 03/11/2014 Ambulatory - [facility] Historical [address] [place] [address] Provider, MD Mara Social History Tobacco Use Types Packs/Day Years Used Date Smoking Tobacco: Never Assessed Comments Unknown Sex and Gender Information Value Date Recorded Sex Assigned at Female 01/12/2022 10:10 AM CHILD CARE CENTER ADMINISTRATOR Legal Sex Female 4:04 AM CHILD CARE CENTER ADMINISTRATOR Gender Identity Female 01/12/2022 10:10 AM CHILD CARE CENTER ADMINISTRATOR Sexual Orientation Not on file documented as of this encounter Plan of Treatment Not on file documented as of this encounter Visit Diagnoses Not on filedocumented in this encounter Care Teams Substation Operator Relationship Specialty Start Date End Date Kasey Christianson MD PCP - General Family Practice 04/23/17 10/05/17 No Ref-Primary, Physician PCP - General 10/06/17 04/13/18 Poonam Manzo, MONOTYPIST [address] [place], [place] [address] PCP - Assigned PCP 10/09/17 04/28/18 Poonam Manzo, MONOTYPIST [address] [place], [place] [address] PCP - General Nurse Practitioner 04/14/18 Poonam Manzo, MONOTYPIST [address] [place], [place] [address] Assigned PCP 10/09/17 08/16/23 Abhilash Enrique DO [address] [place], [place] [address] Assigned Heart and Vascular Provider 12/17/19 05/27/20 Ayush Boyd DPM [facility] [address] [place], [place] [address] Assigned Musculoskeletal Provider 12/17/19 09/05/20 Susana Mensah MD [address] [place], [place] [address] Assigned Surgical Provider 05/04/22 Jessica Coronado PA-C [address] [place] [address] Assigned PCP 08/17/23 03/17/24 Poonam Manzo NP [address] [place] [address] Assigned PCP 03/18/24 documented as of this encounter
--- OUTSIDE RECORDS SUMMARY | 2024-04-19 12:38 | XMS_ITS | Clinical Summary ---
Author Organization [facility] Address [address] [place] [address] Care Team Providers Care Lunchroom Supervisor Name Role Phone Poonam Manzo SOW MANAGER Primary Care Provider + Poonam Manzo SOW MANAGER Unavailable [phone] Allergies Active Allergy Reactions Criticality Noted Date Comments Sulfa Antibiotics Rash,Hives High 09/05/2005 Medications pimecrolimus (ELIDEL) 1 % external creamIndications :Dermatitis Apply topically 2 times daily 28 g 3 02/06/20 21 Active calcium carbonate 500 mg, elemental, 1250 (500 Ca) MG tablet chewable Take 1 tablet by mouth as needed Active ibuprofen (ADVIL/MOTRIN) 200 MG capsule Take 200 mg by mouth every 4 hours as needed for fever Active alendronate (FOSAMAX) 70 MG tabletIndication s:Age-related osteoporosis without current pathological fracture Take 1 tablet (70 mg) by mouth every 7 days 30 tablet 11 10/02/19 24 Active estradiol (ESTRACE) 0.1 MG/GM vaginal creamIndications :Vaginal atrophy Place 2 g vaginally twice a week. 02/23/20 24 Active zolpidem (AMBIEN) 5 MG tabletIndication s:Persistent disorder of initiating or maintaining sleep TAKE 1 TABLET BY MOUTH EVERY NIGHT NEEDED FOR SLEEP 30 tablet 5 03/26/19 25 Active zolpidem (AMBIEN) 5 MG tabletIndication s:Persistent disorder of initiating or maintaining sleep Take 1 tablet (5 mg) by mouth nightly as needed for sleep. 30 tablet 5 02/23/20 24 025 Discontinued Active Problems Problem Noted Date Diagnosed Date Primary osteoarthritis involving multiple joints 02/05/2022 Chronic rhinitis 02/05/2021 RBBB 11/24/2018 Dyspnea on exertion 11/24/2018 Palpitations 11/24/2018 Vitamin D deficiency 10/23/2018 Sarcoidosis 04/07/2017 Overview (04/07/2017): Overview: Receives annual chest x-ray and NIMO levels every 6 months Health care maintenance 12/18/2016 Chondromalacia patellae 04/03/2011 Hormone replacement therapy 06/05/2010 Neck pain 07/13/2009 Sciatica 07/13/2009 Pain in joint, multiple sites 05/12/2006 Overview (03/07/2021): Negative RF, Lyme negative. Raynaud's syndrome 05/12/2006 Overview (03/07/2021): Negative ANJUM IMO Update 12/04 Encounters Date Type Department Care Team Description 04/14/2024 10:00 AM ELECTRIC CAR OPERATOR Office Visit [facility] [place] [address] [address] [employer] [facility] [place] [phone] Rosalind Barton MD Epigastric pain (Primary Dx) 04/14/2024 Travel 03/24/2024 Refill [place] [address] [employer] [place] [phone] Poonam Manzo NP Medication Refill 02/23/2024 10:15 AM ELECTRIC CAR OPERATOR Office Visit [facility] and [place] [address] [employer] [facility] [place] [phone] Poonam Manzo NP Persistent disorder of initiating or maintaining sleep (Primary Dx); Vaginal atrophy; FAB (generalized anxiety disorder); Bone pain; Menopausal syndrome (hot flashes) 02/23/2024 MyC Medical Advice [facility] [place] [address] [employer] [facility] [place] [phone] Poonam Manzo, GUSTAVO 02/23/2024 Travel 02/22/2024 Travel from Last 3 Months Immunizations Name Administration Dates Next Due COVID-19 MONOVALENT 12+ (Pfizer) 08/24/2020,06/0 03/2020 Hepatitis A (ADULT 19+) 07/27/2018 INFLUENZA,TRIVALENT (FLUCELVAX) 12/16/2023 Influenza Vaccine 18-64 (Flublok) 02/05/2021 Influenza Vaccine >6 months,quad, PF ,01/25/2020,01/13/2019, 019,12/30/2016 TD,PF 7+ (Tenivac) 11/14/2005 TDAP Vaccine (Boostrix) 08/03/2018 Td (Adult), Adsorbed 02/24/1995 Typhoid IM 07/27/2018 Family History Medical History Relation Comments Unknown/Adopted Father Unknown,Biologic al fatherUnknown Hypertension Maternal Aunt 1 Hypertension Breast Cancer Maternal Aunt 2 Cancer-breast, s tage 3 breast cancer Prostate Cancer Maternal Grandfather Cancer-pros blanca,Prostate cancer with mets to bone Osteoporosis Maternal Grandmother Osteoporosi s Heart Disease Maternal Uncle Heart Disease,Di ed at age 41 of CAD Heart Disease Mother Heart Disease,Ta chycardia that needed to be treated with ablation therapy Colon Polyps Sister sessile serrated adenomas Relation Status Comments Daughter Alive Father Other Unknown Maternal Aunt 1 Maternal Aunt 2 Maternal Grandfather Maternal Grandmother Maternal Uncle Mother Alive Sister Son Alive Social History Tobacco Use Types Packs/Day Years Used Date Smoking Tobacco: Never Smokeless Tobacco: Never Tobacco Cessation:Counseling Given: No Comments:no ecig Alcohol Use Standard Drinks/Week Comments [...] in an abandoned building, in an overnight fpc, or couch-surfing.) Yes 06/09/2023 Are you worried [...] Sex Assigned at Female 01/12/2022 10:10 AM ELECTRIC CAR OPERATOR Legal Sex Female 4:04 AM ELECTRIC CAR OPERATOR Gender Identity Female 01/12/2022 10:10 AM ELECTRIC CAR OPERATOR Sexual Orientation Not on file Last Filed Vital Signs Vital Sign Reading Time Taken Comments Blood Pressure 118/62 04/14/2024 9:55 AM ELECTRIC CAR OPERATOR Pulse 71 04/14/2024 9:55 AM ELECTRIC CAR OPERATOR Temperature 36.1 C (96.9 F) 04/14/2024 9:55 AM ELECTRIC CAR OPERATOR Respiratory Rate 16 04/14/2024 9:55 AM ELECTRIC CAR OPERATOR Oxygen Saturation 100% 04/14/2024 9:55 AM ELECTRIC CAR OPERATOR Inhaled Oxygen Concentration - - Weight 66.6 kg (146 lb 12.8 oz) 04/14/2024 9:55 AM ELECTRIC CAR OPERATOR Height 170.2 cm (5' 7) 06/09/2023 9:3 6 AM CDT Body Mass Index 22.99 06/09/2023 9:36 AM CDT Plan of Treatment Health Maintenance Due Date Last Done Comments ANNUAL REVIEW OF HM ORDERS 1966 CT COLONOGRAPHY 1966 FIT 1966 FLEX SIG 1966 sDNA (Cologuard) 1966 HEPATITIS B IMMUNIZATION (1 of 3 - 19+ 3-dose series) 1985 Pneumococcal Vaccine: 50+ Years (1 of 1 - PCV) 2016 ZOSTER IMMUNIZATION (1 of 2) 2016 YEARLY PREVENTIVE VISIT 02/05/2023 02/06/20, 02/05/2021, 01/25/2020, Additional history exists COVID-19 Vaccine ( season) 2023 08/24/2020, 07/26/2020 COLONOSCOPY 03/21/2025 03/21/2022, 07/0 09/2019, 12/19/2016 COLORECTAL CANCER SCREENING 03/21/2025 MAMMO SCREENING 07/16/2025 07/17/2023, 06/25, 04/08/2022, Additional history exists ADVANCE CARE PLANNING 02/05/2027 02/05/2022 LIPID 02/05/2027 02/05/2022, 01/24, 01/25/2020, Additional history exists GLUCOSE 04/14/2027 04/14/2024, 12/0 02/2019, 10/23/2018, Additional history exists DTAP/TDAP/TD IMMUNIZATION (2 - Td or Tdap) 08/03/2028 08/03/2018, 11/14/2005, 02/24/1995 HEPATITIS C SCREENING Completed 07/17/2023 , 10/25/2015, 10/25/2015 HIV SCREENING Completed 07/17/2023, 09/26, 10/25/2015 INFLUENZA VACCINE Completed 12/16/2023, , 02/05/2021, Additional history exists PHQ-2 (once per calendar year) Completed 04/14/2024, 02/23/2024, 02/23/2024, Additional history exists HPV IMMUNIZATION Aged Out No longer e ligible based on patient's age to complete this topic MENINGITIS IMMUNIZATION Aged Out No l onger eligible based on patient's age to complete this topic PAP Discontinued Procedures Procedure Name Priority Date/Time Associated Diagnosis Comments LIPASE Routine 04/14/2024 10:35 AM ELECTRIC CAR OPERATOR Epigastric pain COMPREHENSIVE METABOLIC PANEL Routine 04/14/2024 10:35 AM ELECTRIC CAR OPERATOR Epigastric pain CBC WITH PLATELETS Routine 04/14/2024 10 :35 AM ELECTRIC CAR OPERATOR Epigastric pain MA SCREENING WITH IMPLANTS BILATERAL W/ ZION Routine 04/08/2022 2:33 PM ELECTRIC CAR OPERATOR Visit for screening mammogram LIPID PROFILE Routine 02/05/2022 10:03 AM ELECTRIC CAR OPERATOR Mixed hyperlipidemia COLONOSCOPY - HIM SCAN Routine 12/19/2016 ANTI HIV 1/2 - HISTORICAL Routine 10/25/2015 9:30 PM CDT Encounter for screening for infections with predominantly sexual mode of transmission HEPATITIS C ANTIBODY Routine 10/25/2015 9:21 PM CDT Encounter for screening for infections with predominantly sexual mode of transmission from Last 3 Months or Most Recently Relevant to Health Maintenance Results * Lipase (04/14/2024 10:35 AM ELECTRIC CAR OPERATOR) Lipase 38 13 - 60 U/L 04/14/2024 11:29 AM ELECTRIC CAR OPERATOR LABORATORY Blood BLOOD SPECIMEN / Unknown Venipuncture / Unknown 04/14/2024 10:35 AM ELECTRIC CAR OPERATOR 04/14/2024 10:58 AM ELECTRIC CAR OPERATOR us Rosalind Barton MD LAB - BLOOD ORDERABLES Final Res ult LABORATORY [facility] [address] [place] [address], [facility] [phone] * Comprehensive Metabolic Panel (04/14/2024 10:35 AM [facility]) Sodium 140 135 - 145 mmol/L 04/14/2024 11:[address] [facility] Potassium 4.1 3.4 - 5.3 mmol/L 04/14/2024 11:[address] [facility] Carbon Dioxide (CO2) 28 22 - 29 mmol/L 04/14/2024 11:[address] [facility] Anion Gap 10 7 - 15 mmol/L 04/14/2024 11:[address] [facility] Urea Nitrogen 14.1 6.0 - 20.0 mg/dL 04/14/2024 11:[address] [facility] Creatinine 0.88 0.51 - 0.95 mg/dL 04/14/2024 11:[address] [facility] GFR Estimate 76 >60 mL/min/1.7 3m2 04/14/2024 11:[address] [facility] Comment:eGFR calculated usnv 2020 CKD-EPI equation. Calcium 9.8 8.8 - 10.4 mg/dL 04/14/2024 11:[address] [facility] Chloride 102 98 - 107 mmol/L 04/14/2024 11:[address] [facility] Glucose 89 70 - 99 mg/dL 04/14/2024 11:[address] [facility] Alkaline Phosphatase 132 40 - 150 U/L 04/14/2024 11:[address] [facility] AST 35 0 - 45 U/L 04/14/2024 11:[address] [facility] ALT 40 0 - 50 U/L 04/14/2024 11:[address] [facility] Protein Total 7.2 6.4 - 8.3 g/dL 04/14/2024 11:[address] [facility] Albumin 4.5 3.5 - 5.2 g/dL 04/14/2024 11:[address] [facility] Bilirubin Total 0.6 <=1.2 mg/dL 04/14/2024 11:[address] [facility] Blood BLOOD SPECIMEN / Unknown Venipuncture / Unknown 04/14/2024 10:35 AM ELECTRIC CAR OPERATOR 04/14/2024 10:58 AM [facility] us Rosalind Barton MD LAB - BLOOD ORDERABLES Final Res ult LABORATORY [facility] [address] [place] [address], [facility] [phone] * CBC W PLT No Diff (04/14/2024 10:35 AM ELECTRIC CAR OPERATOR) WBC Count 4.8 4.0 - 11.0 10e3/uL 04/14/2024 11:03 AM ELECTRIC CAR OPERATOR LABORATORY RBC Count 4.83 3.80 - 5.20 10e6/uL 04/14/2024 11:[address] [facility] Hemoglobin 14.7 11.7 - 15.7 g/dL 04/14/2024 11:[address] [facility] Hematocrit 42.3 35.0 - 47.0 % 04/14/2024 11:[address] [facility] MCV 88 78 - 100 fL 04/14/2024 11:[address] [facility] MCH 30.4 26.5 - 33.0 pg 04/14/2024 11:[address] [facility] MCHC 34.8 31.5 - 36.5 g/dL 04/14/2024 11:[address] [facility] RDW 12.0 10.0 - 15.0 % 04/14/2024 11:[address] [facility] Platelet Count 244 150 - 450 10e3/uL 04/14/2024 11:[address] [facility] Blood BLOOD SPECIMEN / Unknown Venipuncture / Unknown 04/14/2024 10:35 AM ELECTRIC CAR OPERATOR 04/14/2024 10:58 AM ELECTRIC CAR OPERATOR us Rosalind Barton MD LAB - BLOOD ORDERABLES Final Res ult LABORATORY [facility] [address] [place] [address], [facility] [phone] * MA Screen with Implants Bilateral w/Zion (04/08/2022 2:33 PM ELECTRIC CAR OPERATOR) Anatomical Region Laterality Modality Breast Bilateral Mammography Impressions 04/08/2022 3:20 PM ELECTRIC CAR OPERATOR IMPRESSION: ACR BI-RADS Category 1: Negative RECOMMENDED FOLLOW-UP: Annual routine screening mammogram The results and recommendations of this examination will be communicated to the patient. Hal Fournier MD Narrative 04/08/2022 3:20 PM ELECTRIC CAR OPERATOR BILATERAL FULL FIELD DIGITAL SCREENING MAMMOGRAM WITH TOMOSYNTHESIS Performed on: 04/08/22 Compared to: 04/03/2021, 03/20/2020, 03/04/2019, 12/08/2017, 03/25/2017, 10/03/2016, and 08/31/2015 Technique: This study was evaluated with the assistance of Computer-Aided Detection. Breast Tomosynthesis was used in interpretation. Findings: The breasts have scattered areas of fibroglandular density. There is no radiographic evidence of malignancy. us Poonam Manzo NP IMG MAMMOGRAPHY ORDERABL ES Final Result * (ABNORMAL) Lipid Profile (02/05/2022 10:03 AM ELECTRIC CAR OPERATOR) Cholesterol 220(H) <200 mg/dL 02/05/2022 10:47 AM ELECTRIC CAR OPERATOR LABORATORY Triglycerides 70 <150 mg/dL 02/05/2022 10:[address] [facility] Direct Measure HDL 58 >=50 mg/dL 02/05/2022 10:[address] [facility] LDL Cholesterol Calculated 148(H) <=100 mg/dL 02/05/2022 10:[address] [facility] Non HDL Cholesterol 162(H) <130 mg/dL 02/05/2022 10:[address] [facility] Blood STRUCTURE OF RIGHT UPPER LIMB / Unknown Venipuncture / Unknown 02/05/2022 10:03 AM ELECTRIC CAR OPERATOR 02/05/2022 10:10 AM ELECTRIC CAR OPERATOR Narrative LABORATORY - 02/05/2022 10:47 AM ELECTRIC CAR OPERATOR Cholesterol Desirable: <200 mg/dL Triglycerides Normal: Less than 150 mg/dL Borderline High: 150-199 mg/dL High: 200-499 mg/dL Very High: Greater than or equal to 500 mg/dL Direct Measure HDL Female: Greater than or equal to 50 mg/dL Male: Greater than or equal to 40 mg/dL LDL Cholesterol Desirable: <100mg/dL Above Desirable: 100-129 mg/dL Borderline High: 130-159 mg/dL High: 160-189 mg/dL Very High: >= 190 mg/dL Non HDL Cholesterol Desirable: 130 mg/dL Above Desirable: 130-159 mg/dL Borderline High: 160-189 mg/dL High: 190-219 mg/dL Very High: Greater than or equal to 220 mg/dL Poonam Manzo NP LAB - BLOOD ORDERABLES F inal Result LABORATORY [facility] [address] [facility] [place] [address], [facility] [phone] * Colonoscopy - HIM Scan (12/19/2016) Narrative Shawn Sorto - 12/19/2016 See Procedures by Susana Mensah MD at 12/19/2016 11:46 AM us Provider Outside PROCEDURES Final Result * Anti HIV 1/2 - Historical Result (10/25/2015 9:30 PM CDT) HIV-1/HIV-2 Antibody Category - Historical Non-Reacti ve Non-React dario [facility] Blood specimen (specimen) BLOOD SPECIMEN / Unknown 10/25/2015 8:40 AM CDT [facility] - 10/25/2015 9:30 PM CDT HIV-1 p24 and HIV-1/HIV-2 Ab not detected us Kasey Christianson MD LAB - BLOOD ORDERABLES Final Result [facility] [address] [place] [address], [facility] [phone] [facility] [address] * Hepatitis C antibody (10/25/2015 9:21 PM CDT) Hepatitis C Ab Category - Historical Non-Reacti ve Non-React dario [facility] Blood specimen (specimen) BLOOD SPECIMEN / Unknown 10/25/2015 8:40 AM CDT Narrative [facility] - 10/25/2015 9:21 PM CDT Antibodies to HCV not detected; does not exclude the possibility of exposure to HCV. Kasey Christianson MD LAB - BLOOD ORDERABLES Final Result [facility] [address] [place], [place] [address] [phone] [facility] [address] from Last 3 Months or Most Recently Relevant to Health Maintenance Insurance [facility] Care Teams Lunchroom Supervisor Relationship Specialty Start Date End Date Poonam Manzo NP [address] [place], [place] [id number] PCP - General Nurse Practitioner 04/14/18 Poonam Manzo NP [address] [place], [place] [address] Assigned PCP 03/18/24
--- OUTSIDE RECORDS SUMMARY | 2024-04-19 12:38 | XMS_ITS | Encounter Summary ---
Author Organization [facility] Address [address] [place] [address] Care Team Providers Care Bioprocess Engineer Name Role Phone Poonam Manzo NP Primary Care Provider + Poonam Manzo INDUSTRIAL HEALTH ENGINEER Unavailable + [phone] Abhilash Enrique DO Unavailable [phone] Ayush Boyd DPTasia Unavailable [phone] Susana Mensah MD Unavailable Jessica Coronado PA-C Unavailable [phone] Poonam Manzo INDUSTRIAL HEALTH ENGINEER Unavailable + [phone] Reason for Visit * Reason Onset Date Comments Medication Question 07/23/2018 Encounter Details Date Type Department Care Team (Late st Contact Info) Description 07/23/2018 MyC Medical Advice [facility] [address] [place] [address] Poonam Manzo INDUSTRIAL HEALTH ENGINEER [address] [place] [address] Medication Question Social History Tobacco Use Types Packs/Day Years Used Date Smoking Tobacco: Never Smokeless Tobacco: Never Alcohol Use Standard Drinks/Week Comments Yes 0 (1 standard drink = 0.6 oz pure alcohol) Alcoholic Drinks/day: less than weekly Comments No Sex and Gender Information Value Date Recorded Sex Assigned at Female 01/12/2022 10:10 AM LAY OUT TECHNICIAN Legal Sex Female 4:04 AM LAY OUT TECHNICIAN Gender Identity Female 01/12/2022 10:10 AM LAY OUT TECHNICIAN Sexual Orientation Not on file documented as of this encounter Miscellaneous Notes * Telephone Encounter - Kusum Campo LPN - 07/24/2018 8:14 AM CDT After verifying last name and date of patient was relayed the message from below. Kusum Campo LPN on 07/24/2018 at 8:15 AM * Telephone Encounter - Poonam Manzo NP - 07/24/2018 8:04 AM CDT Let her know that she is fine to receive whatever vaccines are recommended for travel to [facility]. From what I am seeing she may need hepatitis a and typhoid vaccine. documented in this encounter Plan of Treatment Not on file documented as of this encounter Visit Diagnoses Not on filedocumented in this encounter Additional Health Concerns Assessment Noted Time PHQ-9 Depression Total Score: 0 04/21/19 19 7:38 AM LAY OUT TECHNICIAN documented as of this encounter Care Teams Bioprocess Engineer Relationship Specialty Start Date End Date Poonam Manzo NP [address] [place] [address] PCP - General Nurse Practitioner 04/14/18 Poonam Manzo NP [address] [place] [address] Assigned PCP 10/09/17 08/16/23 Abhilash Enrique DO [address] [place] [address] Assigned Heart and Vascular Provider 12/17/19 05/27/20 Ayush Boyd DPM [facility] [address] [place], [place] [address] Assigned Musculoskeletal Provider 12/17/19 09/05/20 Susana Mensah MD [address] [place], [place] [address] Assigned Surgical Provider 05/04/22 Jessica Coronado PA-C [address] [facility] [place], [place] [address] Assigned PCP 08/17/23 03/17/24 Poonam Manzo NP [address] [place], [place] [address] Assigned PCP 03/18/24 documented as of this encounter
--- OUTSIDE RECORDS SUMMARY | 2024-04-19 12:38 | XMS_ITS | Encounter Summary ---
Author Organization [facility] Address [address] [place] [id number] Care Team Providers Care Wire Strander Name Role Phone Poonam Manzo PROJECT DIRECTOR Primary Care Provider + Poonam Manzo PROJECT DIRECTOR Unavailable [phone] Reason for Visit * Reason Comments Medication Refill Encounter Details Date Type Department Care Team (Late st Contact Info) Description 03/24/2024 Refill [facility] [address] [place] [id number] Poonam Manzo, PROJECT DIRECTOR [address] [place] [id number] Medication Refill Social History Tobacco Use Types Packs/Day Years [...] in an abandoned building, in an overnight custodial, or couch-surfing.) Yes 06/09/2023 Are you worried [...] Sex Assigned at Female 01/12/2022 10:10 AM WAITER/WAITRESS [employer] CLASS Legal Sex Female 4:04 AM WAITER/WAITRESS [employer]IN CLASS Gender Identity Female 01/12/2022 10:10 AM WAITER/WAITRESS [employer] CLASS Sexual Orientation Not on file documented as of this encounter Miscellaneous Notes * Telephone Encounter - Deepthi Hendrix RN - 03/26/2024 8:50 AM WAITER/WAITRESS CABIN CLASS [facility] sent Rx request for the following: Requested Prescriptions Pending Prescriptions Disp Refills zolpidem (AMBIEN) 5 MG tablet [Pharmacy Med Name: ZOLPIDEM 5MG TABLETS] 30 tablet Sig: TAKE 1 TABLET BY MOUTH EVERY NIGHT NEEDED FOR SLEEP There is no refill protocol information for this order Last Prescription Date: 02/23/24 Last Fill Qty/Refills: 30, R-5 Last Office Visit: 02/23/24 Future Office visit: none Patient is in [place] and needs prescription sent to [facility] there. She did not pick pack worker any ofthe prescription at [facility]. Deepthi Hendrix RN on 03/26/2024 at 10:08 AM ER/WAITRESS CABIN CLASS documented in this encounter Plan of Treatment Not on file documented as of this encounter Visit Diagnoses Diagnosis Persistent disorder of initiating or maintaining sleep documented in this encounter Additional Health Concerns Assessment Noted Time PHQ-9 Depression Total Score: 1 02/23/20 24 10:16 AM WAITER/WAITRESS [employer]IN CLASS documented as of this encounter Care Teams Wire Strander Relationship Specialty Start Date End Date Poonam Manzo NP [address] [place] [address] PCP - General Nurse Practitioner 04/14/18 Poonam Manzo NP [address] [place] [address] Assigned PCP 03/18/24 documented as of this encounter
[2024-04-19 12:54] LABS: Basophils Absolute Auto 0.03 K/uL (0.00-0.30); Basophils Percent Auto 0.4 % (0.0-3.0); Eosinophils Absolute Auto 0.09 K/uL (0.00-0.50); Eosinophils Percent Auto 1.3 % (0.0-7.0); Hematocrit 43.9 % (33.0-51.0); Hemoglobin* 14.8 gm/dL (12.0-16.0); Immature Granulocytes Abs Auto 0.01 K/uL (0.00-0.30); Immature Granulocytes Pct Auto 0.1 %; Lymphocytes Percent Auto 14.1 % (20-44); Mean Corpuscular HGB Conc 34 gm/dL (32-36); Mean Corpuscular Hemoglobin 30 pg (26-34); Mean Corpuscular Volume 88 fL (80-100); Monocytes Percent Auto 6.4 % (0.0-11.0); Neutrophils Percent Auto 77.7 % (42.0-72.0); Platelet Count* 232 K/uL (140-440); RDW Coefficient of Variation % 11.9 % (11.5-15.5); White Blood Count* 7.14 K/uL (4.50-11.00)
[2024-04-19 12:55] LABS: Slide Review Reflex No
[2024-04-19 13:05] LABS: Albumin* 4.7 g/dL (3.3-5.0); Chloride* 102 mmol/L (96-114); Sodium* 139 mmol/L (135-149)
[2024-04-19 13:06] LABS: Potassium* 4.2 mmol/L (3.6-5.1)
[2024-04-19 13:07] LABS: Creatinine* 0.8 mg/dL (0.5-1.5); Est. Creatinine Clearance* 75.45; Estimated Glomerular Filt Rate 86 ml/min
[2024-04-19 13:08] LABS: Alanine Aminotransferase* 47 U/L (4-35); Alkaline Phosphatase* 114 U/L (40-150); Anion Gap 10 mEq/L (7-15); Aspartate Amino Transferase* 35 U/L (12-35); Bilirubin Direct* 0.2 mg/dL (0.0-0.5); Bilirubin Total* 0.7 mg/dL (0.1-1.5); Blood Urea Nitrogen* 15 mg/dL (7-30); Calcium* 9.7 mg/dL (8.4-10.6); Carbon Dioxide* 27 mmol/L (20-32); Glucose* 100 mg/dL (60-115); Lipase* 122 U/L (23-300); Total Protein* 7.6 g/dL (6.0-8.3)
--- NOTE | 2024-04-19 14:09 | ED_ITS ---
HPI - General Adult General Chief complaint: Chest Pain Stated complaint: chest pain Time Seen by Provider: 04/19/24 12:11 History of Present Illness HPI narrative: This 58-year-old female comes in reporting upper epigastric abdominal pain that is been present for the past couple months. She states that it is seeming to be worse over the past week or so. She states that it seems to be worse also after taking food. It also seems to be worse toward evening each day. She does not report any fevers, vomiting, diarrhea, or blood in the toilet. She is otherwise in good health. She states that she can reproduce the pain by taking a deep breath or by stretching or arching her back and stretching her abdominal muscles. Related Data Home Medications ?Medication ?Instructions ?Recorded ?Confirmed calcium carbonate PO 04/19/24 estradiol acetate vaginal 04/19/24 zolpidem 5 mg tablet (Ambien) 5 mg PO QHS PRN 04/19/24 04/19/24 Previous Rx's ?Medication ?Instructions ?Recorded ketorolac 10 mg tablet 10 mg PO Q8H 5 days #15 tabs 04/19/24 methylprednisolone 4 mg tablets in See Rx Instructions PO .COMPLEX 04/19/24 a dose pack (Medrol (Neftali)) #21 ea Allergies Allergy/AdvReac Type Severity Reaction Status Date / Time Sulfa (Sulfonamide Allergy Intermediate Hives Verified 04/19/24 13:17 Antibiotics) Review of Systems Status of ROS: Reports: 10 or more systems reviewed and unremarkable except as noted in History and below Narrative: Constitutional: No fevers, no weight gain or loss. Eyes: No discharge. No vision changes. HENT: No congestion, no sore throat, no ear pain. Cardiovascular: No chest pain, no palpitations. Respiratory: No shortness of breath, no wheezes, no cough. Gastrointestinal: No vomiting, no diarrhea. Abdominal pain as described above. Genitourinary: No dysuria, no hematuria. Musculoskeletal: Normal range of motion. Skin: No rashes, no pruritis. Neurological: No dizziness, weakness, sensory change, speech change. Endo/Heme/Allergies: No bruising or bleeding. No polydipsia. Pysch: no suicidality, no anxiety, no insomnia. All other systems reviewed and are negative. PFSH PFSH Social History Smoking Status: Never smoker Exam Narrative: Exam Narrative: Constitutional: Well-developed, well-nourished, no acute distress. HEENT: Normocephalic, atraumatic. Neck: Normal range of motion. Nontender. Supple. Heart: Regular. No murmurs. Normal rate. Intact distal pulses. Lungs: Clear to auscultation. No chest discomfort. No wheezes, rhonchi, or rales. Abdomen: Normal bowel sounds. No rebound tenderness. Tenderness in the upper epigastric region. Genitalia: Deferred. Back: No midline tenderness. Normal range of motion. Extremities: Normal range of motion. No injury. Skin: Intact. No rash. Warm. No erythema or pallor. Neurologic: No altered sensation. No weakness. Alert and oriented. Psychiatric: No suicidality. No anxiety or depression. No insomnia. Nursing notes and vitals signs are reviewed. Const: Vital Signs, click to edit/add: Vital Signs - 24 hr 04/19/24 11:55 Temperature 98.6 F Pulse Rate [Pulse Oximeter] 71 Respiratory Rate 20 Blood Pressure [Ri ght Upper Arm] 129/77 Pulse Oximetry 98 Oxygen Delivery Me thod Room Air Course Vital Signs Vital signs: Initial Vital Signs Temperature 98.6 F 04/19/24 11:55 Temperature Source Temporal Artery Scan 04/19/24 11:55 Pulse Rate 71 04/19/24 11:55 Respiratory Rate 20 04/19/24 11:55 Blood Pressure 129/77 04/19/24 11:55 Blood Pressure Mean 94 04/19/24 11:55 Blood Pressure Position Sitting 04/19/24 11:55 Pulse Oximetry 98 04/19/24 11:55 Oxygen Delivery Method Room Air 04/19/24 11:55 Vital Signs Temperature 98.6 F 04/19/24 11:55 Pulse Rate 71 04/19/24 11:55 Respiratory Rate 20 04/19/24 11:55 Blood Pressure 129/77 04/19/24 11:55 Pulse Oximetry 98 04/19/24 11:55 Oxygen Delivery Method Room Air 04/19/24 11:55 Temperature 98.6 F 04/19/24 11:55 Pulse Rate 71 04/19/24 11:55 Respiratory Rate 20 04/19/24 11:55 Blood Pressure 129/77 04/19/24 11:55 Pulse Oximetry 98 04/19/24 11:55 Oxygen Delivery Method Room Air 04/19/24 11:55 Medical Decision Making MDM Narrative Medical decision making narrative: This patient comes in with upper epigastric pain for the past couple weeks. She states that the pain seems to be getting worsen and definitely worsens toward the evening and after taking food. She is not tender when palpating over her gallbladder. An IV was established and CT imaging is obtained. This shows normal findings except for some small nodules that are characteristic of her reported history of sarcoidosis. There are no findings to explain her pain. Additionally her lab results are all normal. I Advised the patient to take Prilosec. She states that she has been doing this for the past couple days. She received prescriptions for Toradol and Medrol Dosepak. This is an attempt to just help her feel better. She is reassured with the negative results of the test done today. I did describe other options for going forward and other diagnoses that we do not have good tools to evaluate in the emergency department. During the evaluation of this patient I considered multiple differential diagnosis considerations. Life-threatening differential diagnoses considered include: Appendicitis, aortic aneurysm, mesenteric ischemia, bowel perforation, ectopic , volvulus and bowel obstruction. Other differential diagnoses include but are not limited to: Inflammatory bowel diseases, cholecystitis, pancreatitis, hepatitis, gastritis, GERD, diverticulitis, PUD, pyelo nephritis/UTI, renal colic/stone, cervicitis, endometritis, IUP, dysfunctional uterine bleeding, ovarian cyst/torsion, spontaneous , as well as other etiologies. Lab Data Labs: Lab Results 04/19/24 Range/Units 12:40 WBC 7.14 (4.50-11.00) K/uL RBC 5.00 (4.00-5.20) m/uL Hgb 14.8 (12.0-16.0) gm/dL Hct 43.9 (33.0-51.0) % MCV 88 (80-100) fL MCH 30 (26-34) pg MCHC 34 (32-36) gm/dL RDW Coeff of Celeste 11.9 (11.5-15.5) % Plt Count 232 (140-440) K/uL Neut % (Auto) 77.7 H (42.0-72.0) % Lymph % (Auto) 14.1 L (20-44) % [place] % (Auto) 6.4 (0.0-11.0) % Eos % (Auto) 1.3 (0.0-7.0) % Baso % (Auto) 0.4 (0.0-3.0) % Neut # (Auto) 5.50 (1.7-7.0) K/uL Lymph # (Auto) 1.00 (0.90-2.90) K/uL [place] # (Auto) 0.50 (0.00-0.90) K/UL Eos # (Auto) 0.09 (0.00-0.50) K/uL Baso # (Auto) 0.03 (0.00-0.30) K/uL Abs Immat Gran (auto) 0.01 (0.00-0.30) K/uL Imm/Tot Granulo (auto) 0.1 % Sodium 139 (135-149) mmol/L Potassium 4.2 (3.6-5.1) mmol/L Chloride 102 (96-114) mmol/L Carbon Dioxide 27 (20-32) mmol/L Anion Gap 10 (7-15) mEq/L BUN 15 (7-30) mg/dL Creatinine 0.8 (0.5-1.5) mg/dL Estimated Creat Clear 75.45 Estimated GFR 86 ml/min Glucose 100 (60-115) mg/dL Calcium 9.7 (8.4-10.6) mg/dL Total Bilirubin 0.7 (0.1-1.5) mg/dL Direct Bilirubin 0.2 (0.0-0.5) mg/dL AST 35 (12-35) U/L ALT 47 H (4-35) U/L Alkaline Phosphatase 114 (40-150) U/L Total Protein 7.6 (6.0-8.3) g/dL Albumin 4.7 (3.3-5.0) g/dL Lipase 122 (23-300) U/L Imaging Data CT scan - abdomen: Radiologist's impression: 1. No discrete acute abdominal or pelvic process. No obstruction. No hydroureteronephrosis. 2. No imaging findings to explain the reported clinical symptoms. 3. Dependent right lower lobe predominant scattered pulmonary peripheral micro nodules. Additional scattered indeterminate pulmonary nodules in the lung bases measuring up to 7 millimeters. If not previously assessed, recommend unenhanced chest CT for further evaluation. 4. Hypodensity in segment 5 measuring 11 millimeters measuring not quite simple attenuation. Incompletely characterized on this exam. Recommend nonemergent dedicated liver protocol MRI for further characterization if not previously worked up. Discharge Plan Discharge Clinical Impression: Abdominal pain Patient Disposition: Home, Self-Care Condition: Stable Additional Instructions: Take a proton pump inhibitor such as Prilosec as directed. Use other prescribed medicines also as needed and directed. Follow up with MD or return if worsening. Prescriptions: New ketorolac 10 mg tablet 10 mg PO Q8H 5 Days Qty: 15 0RF methylprednisolone [Medrol (Neftali)] 4 mg tablets,dose pack See Rx Instructions .ROUTE .COMPLEX Qty: 21 0RF Rx Instructions: orally per package directions No Action zolpidem [Ambien] 5 mg tablet 5 mg PO QHS PRN estradiol acetate vaginal calcium carbonate [Antacid Calcium] PO Follow Up/Referrals: Provider,Not a Local [Primary Care Provider] - Stand Alone Forms: [facility] Info Instructions
[2024-04-19 14:45] VITALS: BP 120/70; PULSE 68; RESP 20; O2SAT 99
== END 2024-04-19 14:48 | disposition home or self-care (01) ==
PROVIDERS: Emergency Provider Emergency Medicine Emergency Medical Services
DX: R10.9 Unspecified abdominal pain (principal)
CPT/HCPCS: 36415; 74177; 80048; 80076; 83690; 85025; 99284; 99285; Q9967